=== PATIENT | female | born 1965 | race Caucasian/White ===

== ENCOUNTER 2016-11-22 14:54 | Emergency (ER) | payer BC ==
[2016-11-22 15:16] VITALS: BP 165/85
[2016-11-22] MEDS ORDERED: Ketorolac INJ* 60 MG/2 ML VIAL IM ONE (17:27)
--- NOTE | 2016-11-22 17:27 | UC ---
Complaint Female HPI - HPI Summary HPI Summary: seen 11/19 and dx with uti, now has worsening bilateral flank pain for 2 days no fever, chills, nausea, vomiting, no pain or burning with urination - History Of Current Complaint Chief Complaint: UCGeneralIllness Stated Complaint: BACK PAIN,FREQ URINATION Time Seen by Provider: 11/22/16 17:23 Hx Obtained From: Patient Hx Last Menstrual Period: now ?: No Onset/Duration: Gradual Onset, Lasting Days - 2, Still Present Timing: Constant Severity Initially: Moderate Severity Currently: Moderate Pain Intensity: 6 Character: Colicy Aggravating Factor(s): Nothing Alleviating Factor(s): Nothing Associated Signs And Symptoms: Positive: Back Pain. Negative: Fever, Vaginal Bleeding/Discharge, Vaginal Discharge, Nausea, Vomiting(# Of Episodes =), Retained Foregin Body (Specify) Related Hx: Similar Episode/Dx as: - renal colic - Allergies/Home Medications Allergies/Adverse Reactions: Allergies Allergy/AdvReac Type Severity Reaction Status Date / Time Codeine Allergy Intermediate See Comment Verified 11/22/16 15:16 Home Medications: Home Medications Diltiazem TAB* [Cardizem Tab*] 180 BID 11/22/16 [History] Sulfamethox/Trimethoprim DS* [Bactrim DS 800/160 TAB*] 1 11/22/16 [History] PMH/Surg Hx/FS Hx/Imm Hx Previously Healthy: No Endocrine History Of: Denies: Diabetes, Thyroid Disease, Hyperthyroidism, Hypothyroidism Cardiovascular History Of: Reports: Hypertension Denies: Cardiac Disorders, Pacemaker/ICD Respiratory History Of: Denies: COPD, Asthma GI/ History Of: Denies: Ulcer Neurological History Of: Denies: TIA, Seizures Psychological History Of: Denies: Anxiety, Depression Cancer History Of: Denies: Breast Cancer - Surgical History Surgical History: None - Family History Known Family History: Positive: None Family History: denies cardiovascular issues in family lineage - Social History Occupation: Employed Full-time Lives: With Family Alcohol Use: Daily Alcohol Amount: 6-8 beers/day Substance Use Type: None, Marijuana Smoking Status (MU): Heavy Every Day Tobacco Smoker Amount Used/How Often: 1 PPD Review of Systems Constitutional: Negative Skin: Negative Eyes: Negative ENT: Negative Respiratory: Negative Cardiovascular: Negative Gastrointestinal: Negative Genitourinary: Negative Motor: Negative Musculoskeletal: Arthralgia Neurological: Negative Psychological: Negative All Other Systems Reviewed And Are Negative: Yes Physical Exam Triage Information Reviewed: Yes Appearance: Well-Appearing, No Pain Distress, Well-Nourished Vital Signs: Initial Vital Signs Temp 97.7 F 11/22/16 15:11 Pulse 94 11/22/16 15:11 Resp 20 11/22/16 15:11 BP 165/85 11/22/16 15:11 Pulse Ox 94 11/22/16 15:11 Vital Signs Reviewed: Yes Eye Exam: Normal Eyes: Positive: Conjunctiva Clear ENT Exam: Normal ENT: Positive: Normal ENT inspection, Hearing grossly normal, Pharynx normal, TMs normal. Negative: Nasal congestion, Nasal drainage, Trismus, Muffled/ hoarse voice Dental Exam: Normal Neck exam: Normal Neck: Positive: Supple, Nontender, No Lymphadenopathy Respiratory Exam: Normal Respiratory: Positive: Chest non-tender, Lungs clear, Normal breath sounds, No respiratory distress, No accessory muscle use Cardiovascular Exam: Normal Cardiovascular: Positive: RRR, No Murmur, Pulses Normal, Brisk Capillary Refill Abdominal Exam: Normal Abdomen Description: Positive: Nontender, No Organomegaly, Soft, CVA Tenderness (R), CVA Tenderness (L) Bowel Sounds: Positive: Present Musculoskeletal Exam: Normal Musculoskeletal: Positive: Strength Intact, ROM Intact, No Edema Neurological Exam: Normal Neurological: Positive: Alert, Muscle Tone Normal Psychological Exam: Normal Psychological: Positive: Normal Response To Family Skin Exam: Normal Diagnostics - Laboratory Diagnostic Studies Completed/Ordered: 2mm non-obstruction right renal stone Complaint Female Dx - Course Course Of Treatment: increase fluids rest, pain control, strain urine follow with pcp - Differential Dx/Diagnosis Differential Diagnosis/HQI/PQRI: Renal Colic, Ureteral Stone, Urinary Tract Infection Provider Diagnoses: Renal Colic Discharge - Discharge Plan Condition: Stable Disposition: HOME Patient Education Materials: Acetaminophen (By mouth), Kidney Stones (ED), How to Strain Your Urine (ED) Forms: *Work Release Referrals: Meghna Sidhu NP [Primary Care Provider] - 3 Days
--- NOTE | 2016-11-22 18:01 | RAD ---
INDICATION: Bilateral flank pain COMPARISON: None TECHNIQUE: Noncontrast axial source images were acquired from the level hemidiaphragms to the symphysis pubis as part of CT imaging for renal stone. Lung bases: The lung bases are clear. Liver: The liver is normal in size. Noncontrast imaging shows no evidence of a hepatic mass or ductal dilatation. Gallbladder: There are no calcified gallstones. There is no evidence of wall thickening or pericholecystic fluid.. Spleen: The spleen is normal in size. The noncontrast CT appearance is normal. Pancreas: Noncontrast imaging shows no pancreatic mass or ductal dilitation. Adrenal glands: May be mild, bilateral, adrenal hyperplasia. Kidneys/Bladder: There is a nonobstructive 2 mm lower pole right renal calculus. There are no other calcifications of urinary significance. There is no obstruction. There is no renal mass identified on noncontrast imaging. Adenopathy: There is no evidence of intraperitoneal or retroperitoneal adenopathy. Evaluation is limited without oral contrast. Fluid collections: There are no free or localized fluid collections. Vessels: The aorta and iliac vessels are normal in caliber. There are no significant atherosclerotic changes. The IVC appears normal Pelvic organs: Uterus is mildly prominent. There is no adnexal mass. GI tract: Evaluation of the bowel is limited without oral contrast. The stomach, small bowel, and lower GI tract appear grossly normal. There are no obstructive findings. The appendix is visualized and appears normal. Soft tissues: There is a moderate-sized fat-containing ventral hernia. Osseous structures: There are no acute osseous findings. IMPRESSION: 1. Nonobstructive 2 mm right renal calculus. 2. Fat-containing ventral hernia 3. Normal appendix.
[2016-11-22] MEDS ORDERED: HYDROcodone/ACETAMIN 5-325 MG* 1 TAB PO ONE (18:19)
== END 2016-11-22 18:28 | disposition home or self-care (01) ==
LOC: UCEAST 14:54
DX: N23 Unspecified renal colic (principal); F17.210 Nicotine dependence, cigarettes, uncomplicated; Z88.5 Allergy status to narcotic agent
CPT/HCPCS: 74176; 81002; 96372; 99211; G0463; J1885

== ENCOUNTER → 2017-02-07 13:08 | Emergency (ER) | payer BC ==
[2017-02-07 14:48] LABS: Add Diff/Slide Review? Slide Review Added; Comments Flag Yes; Hematocrit 43 % (35-47); Hemoglobin 14.8 g/dl (12.0-16.0); Mean Corpuscular HGB Conc 34 g/dl (31-36); Mean Corpuscular Hemoglobin 31 pg (27-31); Mean Corpuscular Volume 91 fL (80-97); Mean Platelet Volume 7 um3 (7.4-10.4); Red Blood Count 4.76 10^6/ul (4.0-5.4); Red Cell Distribution Width 15 % (10.5-15); White Blood Count 10.3 10^3/ul (3.5-10.8)
[2017-02-07 15:03] LABS: Albumin 4.2 g/dL (3.2-5.2); BUN/Creatinine Ratio 14.3 (8-20); Calcium 9.1 mg/dL (8.6-10.3); EGFR African American 147.4 (>60); EGFR Non-African American 114.6 (>60); Magnesium 1.7 mg/dL (1.9-2.7); Potassium 3.8 mmol/L (3.5-5.0); Total Bilirubin 0.4 mg/dL (0.2-1.0); Total Protein 7.2 g/dL (6.4-8.9)
[2017-02-07 15:31] LABS: TSH (Thyroid Stimulating Horm) 0.48 mcIU/mL (0.34-5.60)
[2017-02-07 17:12] VITALS: BP 160/79
--- NOTE | 2017-02-07 20:37 | ED ---
Cruz Thompson Michael, scribed for Castro Rey MD on 02/07/17 at 1415 . Palpitations / Dysrhythmia - HPI Summary HPI Summary: 51 y/o female comes to the ED presenting with intermittent episodes of palpitations that started 3 days ago. The pt describes the palpitations as rapid , and she has a home machine detecting an irregular heart beat. She also c/o recent stress and anxiety increase for the past few days, which she states may aggravate the palpitations. The pt takes 360mg of Cardizem for HTN per day. - History of Current Complaint Chief Complaint: EDDysrhythmPalp Time Seen by Provider: 02/07/17 14:04 Hx Obtained From: Patient, Medical Records Onset/Duration: Sudden Onset Timing: Intermittent Episodes Lasting: Severity Initially: Moderate Severity Currently: Moderate Character: Fast, Irregular Aggravating: Rest - increased stress/anxiety Associated Signs & Symptoms: Negative - Positive: anxiety. palpitatoins - Allergy/Home Medications Allergies/Adverse Reactions: Allergies Allergy/AdvReac Type Severity Reaction Status Date / Time Codeine Allergy Intermediate See Comment Verified 02/07/17 13:12 PMH/Surg Hx/FS Hx/Imm Hx Endocrine/Hematology History: Denies: Hx Diabetes, Hx Thyroid Disease Cardiovascular History: Reports: Hx Hypertension Denies: Hx Hypercholesterolemia, Hx Pacemaker/ICD, Hx Peripheral Vascular Disease Respiratory History: Denies: Hx Asthma, Hx Chronic Obstructive Pulmonary Disease (COPD) GI History: Denies: Hx Ulcer Musculoskeletal History: Denies: Hx Arthritis, Hx Osteoporosis Sensory History: Denies: Hx Cataracts, Hx Contacts or Glasses, Hx Glaucoma, Hx Hearing Aid Opthamlomology History: Denies: Hx Cataracts, Hx Contacts or Glasses, Hx Glaucoma Neurological History: Denies: Hx Headaches, Hx Seizures, Hx Transient Ischemic Attacks (TIA) Psychiatric History: Denies: Hx Anxiety, Hx Depression, Hx Panic Disorder - Cancer History Hx Chemotherapy: No Hx Radiation Therapy: No Infectious Disease History: No Infectious Disease History: Denies: Hx Hepatitis, Hx Human Immunodeficiency Virus (HIV), Traveled Outside the [place] in Last 30 Days - Family History Known Family History: Positive: None Negative: Cardiac Disease, Hypertension Family History: denies cardiovascular issues in family lineage - Social History Occupation: Employed Full-time Lives: With Family Alcohol Use: Daily Alcohol Amount: 6-8 beers/day Hx Substance Use: No Substance Use Type: Reports: Marijuana Hx Tobacco Use: Yes Smoking Status (MU): Heavy Every Day Tobacco Smoker Amount Used/How Often: 1 PPD Review of Systems Negative: Fever Positive: Palpitations Positive: Anxious All Other Systems Reviewed And Are Negative: Yes Physical Exam Triage Information Reviewed: Yes Vital Signs On Initial Exam: Initial Vitals Temp Pulse Resp BP Pulse Ox 98.1 F 107 20 195/77 100 02/07/17 13:14 02/07/17 13:14 02/07/17 13:14 02/07/17 13:14 02/07/17 13:14 Vital Signs Reviewed: Yes Appearance: Positive: Well-Appearing, No Pain Distress, Obese Skin: Positive: Warm, Skin Color Reflects Adequate Perfusion, Dry Head/Face: Positive: Normal Head/Face Inspection Eyes: Positive: Normal ENT: Positive: Normal ENT inspection Neck: Positive: Supple, Nontender Respiratory/Lung Sounds: Positive: Clear to Auscultation, Breath Sounds Present Cardiovascular: Positive: Tachycardia Abdomen Description: Positive: Nontender, Soft Bowel Sounds: Positive: Present Musculoskeletal: Positive: Normal Neurological: Positive: Normal Psychiatric: Positive: Anxious Diagnostics - Vital Signs Vital Signs Temp Pulse Resp BP Pulse Ox 02/07/17 14:00 94 16 99 02/07/17 13:58 81 14 169/89 98 02/07/17 13:28 90 14 98 02/07/17 13:14 98.1 F 107 20 195/77 100 - Laboratory Lab Results: Lab Results 02/07/17 02/07/17 02/07/17 Range/Units 14:40 14:40 14:40 WBC 10.3 (3.5-10.8) 10^3/ul RBC 4.76 (4.0-5.4) 10^6/ul Hgb 14.8 (12.0-16.0) g/dl Hct 43 (35-47) % MCV 91 (80-97) fL MCH 31 (27-31) pg MCHC 34 (31-36) g/dl RDW 15 (10.5-15) % Plt Count 259 (150-450) 10^3/ul MPV 7 L (7.4-10.4) um3 Neut % (Auto) 77.4 (38-83) % Lymph % (Auto) 15.2 L (25-47) % Meagher % (Auto) 4.7 (1-9) % Eos % (Auto) 1.6 (0-6) % Baso % (Auto) 1.1 (0-2) % Absolute Neuts (auto) 8.0 H (1.5-7.7) 10^3/ul Absolute Lymphs (auto) 1.6 (1.0-4.8) 10^3/ul Absolute Monos (auto) 0.5 (0-0.8) 10^3/ul Absolute Eos (auto) 0.2 (0-0.6) 10^3/ul Absolute Basos (auto) 0.1 (0-0.2) 10^3/ul Absolute Nucleated RBC 0 10^3/ul Nucleated RBC % 0 Sodium 134 (133-145) mmol/L Potassium 3.8 (3.5-5.0) mmol/L Chloride 103 (101-111) mmol/L Carbon Dioxide 23 (22-32) mmol/L Anion Gap 8 (2-11) mmol/L BUN 8 (6-24) mg/dL Creatinine 0.56 (0.51-0.95) mg/dL Est GFR ( Amer) 147.4 (>60) Est GFR (Non-Af Amer) 114.6 (>60) BUN/Creatinine Ratio 14.3 (8-20) Glucose 109 H (70-100) mg/dL Lactic Acid 0.8 (0.5-2.0) mmol/L Calcium 9.1 (8.6-10.3) mg/dL Magnesium 1.7 L (1.9-2.7) mg/dL Total Bilirubin 0.40 (0.2-1.0) mg/dL AST 15 (13-39) U/L ALT 14 (7-52) U/L Alkaline Phosphatase 64 (34-104) U/L Troponin I 0.00 (<0.04) ng/mL Total Protein 7.2 (6.4-8.9) g/dL Albumin 4.2 (3.2-5.2) g/dL Globulin 3.0 (2-4) g/dL Albumin/Globulin Ratio 1.4 (1-3) TSH 0.48 (0.34-5.60) mcIU/mL Result Diagrams: 02/07/17 14:40 02/07/17 14:40 Lab Statement: Any lab studies that have been ordered have been reviewed, and results considered in the medical decision making process. - EKG EK EKG Rhythm: Sinus Rhythm - 94 EKG Interpretation: borderline tachycardia Course/Dx - Course Course Of Treatment: Ms. Garsia presented with a concern for an irregular, racing heartbeat on and off for a few days. She had had a similar episode in the remote past when she was under a lot of stress and wore a Holter. She was diagnosed with anxiety and given a script for lorazepam. Tonight she was again W/U'd with labs including troponin and d-dimer which were negative and CXR/ecg. She is requesting ativan as she took a couple of the ones left over from her previous W/U and they helped. I think that's a good idea. - Diagnoses Provider Diagnoses: Palpitations, Anxiety Discharge - Discharge Plan Condition: Stable Disposition: HOME Prescriptions: LORazepam TAB(*) [Ativan TAB(*)] 1 mg PO Q6H PRN #20 tab MDD 4 PRN Reason: Pain Patient Education Materials: Palpitations (ED), Anxiety (ED) Referrals: Meghna Sidhu NP [Primary Care Provider] - Additional Instructions: Please follow up with Meghna Sidhu within the next 3-5 days. The documentation as recorded by the Cruz gibbons Michael accurately reflects the service I personally performed and the decisions made by me, Castro Rey MD.
== END | disposition home or self-care (01) ==
LOC: ED 13:08
DX: R00.2 Palpitations (principal); F41.9 Anxiety disorder, unspecified; F17.210 Nicotine dependence, cigarettes, uncomplicated; I10 Essential (primary) hypertension; Z88.5 Allergy status to narcotic agent
CPT/HCPCS: 36415; 80053; 83605; 83735; 84443; 84484; 85025; 93005; 99283

== ENCOUNTER 2017-08-08 14:50 | Emergency (ER) | payer BC ==
--- NOTE | 2017-08-08 15:16 | ED ---
Lower Extremity - HPI Summary HPI Summary: Patient is a 51yo smoker with a history of HTN and anxiety presenting to the ED with CC of left calf and behind the knee pain since yesterday. Denies swelling , erythema. Notes to temperature changes in the R leg which has been intermittent. Hip discomfort with a pinched feeling which radiates down the leg causing the leg to becomes cold. Denies numbness or tingling in the R leg. She notes to some SOB at baseline. She is anxious on arrival, and thinks it may be a blood clot, continuing to express "something's not right." Denies fevers, sweats or chills. Endorses R lower back pain, but full ROM noted. Denies GUZMAN, visual changes. Endorses a fluttery feeling in her heart. She was seen in the ED last week for right sided abdominal pain with lab work obtained. - History of Current Complaint Chief Complaint: EDExtremityLower Stated Complaint: LEFT LEG NUMBNESS Time Seen by Provider: 08/08/17 15:01 Hx Obtained From: Patient Hx Last Menstrual Period: now Onset of Pain: Immediate Onset/Duration: Hours Severity Initially: Mild Severity Currently: Mild Pain Intensity: 0 Pain Scale Used: 0-10 Numeric Timing: Constant Location: Is Discrete @ - left calf Character Of Pain: Aching Aggravating Factor(s): Standing, Ambulation Alleviating Factor(s): Rest Able to Bear Weight: Yes - Risk Factors DVT Risk Factors: Smoking Septic Arthritis Risk Factor: Negative - Allergies/Home Medications Allergies/Adverse Reactions: Allergies Allergy/AdvReac Type Severity Reaction Status Date / Time Codeine Allergy Intermediate See Comment Verified 08/08/17 14:59 PMH/Surg Hx/FS Hx/Imm Hx Previously Healthy: Yes Endocrine/Hematology History: Denies: Hx Diabetes, Hx Thyroid Disease Cardiovascular History: Reports: Hx Hypertension Denies: Hx Hypercholesterolemia, Hx Pacemaker/ICD, Hx Peripheral Vascular Disease Respiratory History: Denies: Hx Asthma, Hx Chronic Obstructive Pulmonary Disease (COPD) GI History: Denies: Hx Ulcer Musculoskeletal History: Denies: Hx Arthritis, Hx Osteoporosis Sensory History: Denies: Hx Cataracts, Hx Contacts or Glasses, Hx Glaucoma, Hx Hearing Aid Opthamlomology History: Denies: Hx Cataracts, Hx Contacts or Glasses, Hx Glaucoma Neurological History: Denies: Hx Headaches, Hx Seizures, Hx Transient Ischemic Attacks (TIA) Psychiatric History: Denies: Hx Anxiety, Hx Depression, Hx Panic Disorder - Cancer History Hx Chemotherapy: No Hx Radiation Therapy: No - Immunization History Hx Pertussis Vaccination: No Immunizations Up to Date: Unable to Obtain/Confirm Infectious Disease History: No Infectious Disease History: Denies: Hx Clostridium Difficile, Hx Hepatitis, Hx Human Immunodeficiency Virus (HIV), Hx of Known/Suspected MRSA, Hx Shingles, Hx Tuberculosis, Hx Known/ Suspected VRE, Hx Known/Suspected VRSA, History Other Infectious Disease, Traveled Outside the [place] in Last 30 Days - Family History Known Family History: Positive: None Negative: Cardiac Disease, Hypertension Family History: denies cardiovascular issues in family lineage - Social History Occupation: Employed Full-time Lives: With Family Alcohol Use: Daily Alcohol Amount: 6-8 beers/day Hx Substance Use: No Substance Use Type: Reports: Marijuana Hx Tobacco Use: Yes Smoking Status (MU): Heavy Every Day Tobacco Smoker Amount Used/How Often: 1 PPD Review of Systems Constitutional: Negative Negative: Fever, Chills, Fatigue Eyes: Negative Positive: Palpitations Respiratory: Negative Genitourinary: Negative Positive: no symptoms reported, see HPI Positive: Myalgia - left calf tenderness Skin: Negative Neurological: Negative Psychological: Normal All Other Systems Reviewed And Are Negative: Yes Physical Exam Triage Information Reviewed: Yes Vital Signs On Initial Exam: Initial Vitals Temp Pulse Resp BP Pulse Ox 98.3 F 98 16 157/97 98 08/08/17 14:55 08/08/17 14:55 08/08/17 14:55 08/08/17 14:55 08/08/17 14:55 Vital Signs Reviewed: Yes Appearance: Positive: Well-Appearing, Well-Nourished Skin: Positive: Warm, Skin Color Reflects Adequate Perfusion Head/Face: Positive: Normal Head/Face Inspection Eyes: Positive: EOMI, Conjunctiva Clear Neck: Positive: Supple Respiratory/Lung Sounds: Positive: Wheezes Cardiovascular: Positive: Pulses are Symmetrical in both Upper and Lower Extremities Musculoskeletal: Positive: Normal, Strength/ROM Intact, Pain @ - left calf pain Neurological: Positive: Speech Normal Psychiatric: Positive: Normal AVPU Assessment: Alert Diagnostics - Vital Signs Vital Signs Temp Pulse Resp BP Pulse Ox 08/08/17 14:55 98.3 F 98 16 157/97 98 - Laboratory Lab Statement: Any lab studies that have been ordered have been reviewed, and results considered in the medical decision making process. Lower Extremity Course/Dx - Course Course Of Treatment: Patient presents to the ED with calf pain in the L leg, and right leg intermittent feeling of coldness with back pain. Fluttery feeling in the chest. Hx of HTN and anxiety. Very anxious on arrival. Recently seen here last week with full workup with normal exam. D-dimer <200. Daughter would like an US of the left leg. US for DVT performed and awaiting results. Rosendo continues to say she would like an MRI to make sure she does not have a blood clot, despite the negative d-dimer. She has not felt tachy, but states she has palpitations intermittently. ON exam there is no tenderness over the bilateral flanks. She notes to pain which now "moves" when she lifts her arms. She would like a referral for an MRI. It was explained to patient she will not require an MRI to r/o blood clot and that this is likely muscular. I have discussed following up with PCP for any other referrals she may need. This is likely not a ortho case, although I do beleive this is muscular. Denies N/V/C/D. Denies epigastric pain. Smoker and states she has been getting over a "cold." I have signed out to Naomi Arroyo PA-C pending the results of the US. She has a WELLS SCORE of 3.0. (moderate risk) - Diagnoses Differential Diagnosis/HQI/PQRI: Positive: DVT, Sprain, Strain Provider Diagnoses: Strain of calf muscle Discharge - Discharge Plan Condition: Stable Disposition: HOME Patient Education Materials: Muscle Strain (ED), Leg Pain (ED) Referrals: Femi Moreno MD [Medical Doctor] - Meghna Cowart NP [Primary Care Provider] - Additional Instructions: PLEASE FOLLOW UP WITH JUDD COWART NP DISCUSSED, WE HAVE RULED OUT THE LIKELINESS OF A BLOOD CLOT BASED ON ULTRASOUND AND THE BLOOD TEST EKG LOOKS OK CHEST XRAY LOOKS OK HOWEVER, IF YOU DEVELOP WORSENING SYMPTOMS, YOU NEED TO RETURN TO THE ED IMMEDIATELY IBUPROFEN 600MG THREE TIMES DAILY AND MOIST HEAT TO THE AREA FOR RELAXATION OF THE MUSCLES IF YOU DEVELOP SHORTNESS OF BREATH - RETURN TO THE ED. I HAVE GIVEN YOU A REFERRAL TO CARDIOLOGY IF YOU DEVELOP PALPITATION, HEART RACING, ETC.
--- NOTE | 2017-08-08 15:39 | RAD ---
INDICATION: Wheezing COMPARISON: July 30, 2017 TECHNIQUE: PA and lateral dual-energy views were obtained. FINDINGS: Bones/Soft Tissues: There are no acute bony findings. There is osteopenia with kyphosis Cardiomediastinal: The cardiomediastinal silhouette is normal. Lungs: There are no infiltrates. Pleura: There are no pleural effusions. Other: None IMPRESSION: NO ACTIVE DISEASE.
--- NOTE | 2017-08-08 16:27 | RAD ---
INDICATION: Pain and swelling. Normal d-dimer COMPARISON: None TECHNIQUE: Duplex interrogation of the Lowerextremity was performed. FINDINGS: Deep veins: The common femoral, great saphenous, profunda femoris, proximal, mid, and distal deep femoral, popliteal, posterior tibial, and peroneal veins are patent. There is normal compressibility, augmentation, and phasic flow. Superficial veins: There are no findings of superficial thrombophlebitis. Popliteal fossa:There is no evidence of a popliteal cyst. Soft tissues:There are no soft tissue abnormalities. IMPRESSION: Normal examination. No evidence of deep venous thrombosis
[2017-08-08 16:50] VITALS: BP 157/83
== END 2017-08-08 16:51 | disposition home or self-care (01) ==
LOC: ED 14:50
DX: S86.912A Strain of unspecified muscle(s) and tendon(s) at lower leg level, left leg, initial encounter (principal); X58.XXXA Exposure to other specified factors, initial encounter; Y93.9 Activity, unspecified; Y92.9 Unspecified place or not applicable; Z86.79 Personal history of other diseases of the circulatory system; Y99.9 Unspecified external cause status
CPT/HCPCS: 36415; 71020; 85379; 96372; 96374; 99283

== ENCOUNTER 2017-10-04 13:57 | Emergency (ER) | payer BC ==
[2017-10-04 17:23] LABS: ABS Basophils 0.1 10^3/ul (0-0.2); ABS Eosinophils 0.1 10^3/ul (0-0.6); ABS Lymphocytes 2.1 10^3/ul (1.0-4.8); ABS Monocytes 0.6 10^3/ul (0-0.8); ABS Neutrophils 7.6 10^3/ul (1.5-7.7); ABS Nucleated RBC 0 10^3/ul; Eosinophil % 0.6 % (0-6); Hematocrit 43 % (35-47); Hemoglobin 14.4 g/dl (12.0-16.0); Lymphocyte % 19.8 % (25-47); Mean Corpuscular HGB Conc 34 g/dl (31-36); Mean Corpuscular Hemoglobin 31 pg (27-31); Mean Corpuscular Volume 92 fL (80-97); Mean Platelet Volume 7 um3 (7.4-10.4); Nucleated Red Blood Cells % 0; Platelet Count 370 10^3/ul (150-450); Red Blood Count 4.62 10^6/ul (4.0-5.4); Red Cell Distribution Width 15 % (10.5-15); White Blood Count 10.4 10^3/ul (3.5-10.8)
[2017-10-04 17:35] LABS: EGFR Non-African American 103.4 (>60)
[2017-10-04 17:40] LABS: INR 0.89 (0.77-1.02)
[2017-10-04 19:25] LABS: Urine Appearance Cloudy; Urine Blood 2+ (Negative); Urine Color Yellow; Urine Ketones Trace (Negative); Urine Protein 1+(30 mg/dL) (Negative); Urine Specific Gravity 1.017 (1.010-1.030); Urine Urobilinogen Negative (Negative)
[2017-10-04] MEDS ORDERED: Lidocaine 4% GEL* 10 GM TUBE TOPICAL ONE (19:30)
[2017-10-04 20:08] VITALS: BP 133/75
--- NOTE | 2017-10-04 20:17 | ED ---
Edgar Thompson Gabriel, scribed for Paras Dickens MD on 10/04/17 at 1836 . Abdominal Pain/Female - HPI Summary HPI Summary: This patient is a 52 year old F presenting to [facility] with a chief complaint of blood in her stool that began yesterday. The patient rates the pain 8/10 in severity and describes it as radiating into her back. Patient reports burning in LE, chills, and cold and hot feeling in her LE. Patient denies melena, vomiting, fever, dysuria, and hematuria. Yesterday she had a gross amount of blood when wiping and has bleeding hemorrhoids. She has a history of bleed external hemorrhoids. In July she had ABD pain in suprapubic region that resolved and she has colposcopy in a month. - History of Current Complaint Chief Complaint: EDGIBleed Stated Complaint: BACK PAIN/ABD PAIN Time Seen by Provider: 10/04/17 18:18 Hx Obtained From: Patient Hx Last Menstrual Period: now Onset/Duration: Lasting Days - 1, Still Present Timing: Constant Severity Initially: Moderate Severity Currently: Moderate Pain Intensity: 8 Pain Scale Used: 0-10 Numeric Location: Diffuse Radiates: Yes Radiates to: Back Associated Signs and Symptoms: Positive: Negative - melena, vomiting, fever, dysuria, and hematuria, Other: - burning in LE, chills, and cold and hot feeling in her LE" Allergies/Adverse Reactions: Allergies Allergy/AdvReac Type Severity Reaction Status Date / Time Codeine Allergy Intermediate See Comment Verified 10/04/17 18:55 PMH/Surg Hx/FS Hx/Imm Hx Endocrine/Hematology History: Denies: Hx Diabetes, Hx Thyroid Disease Cardiovascular History: Reports: Hx Hypertension Denies: Hx Hypercholesterolemia, Hx Pacemaker/ICD, Hx Peripheral Vascular Disease Comment Only: Other Cardiovascular Problems/Disorders - tachycardia Respiratory History: Denies: Hx Asthma, Hx Chronic Obstructive Pulmonary Disease (COPD) GI History: Denies: Hx Ulcer Musculoskeletal History: Denies: Hx Arthritis, Hx Osteoporosis Sensory History: Denies: Hx Cataracts, Hx Contacts or Glasses, Hx Glaucoma, Hx Hearing Aid Opthamlomology History: Denies: Hx Cataracts, Hx Contacts or Glasses, Hx Glaucoma Neurological History: Denies: Hx Headaches, Hx Seizures, Hx Transient Ischemic Attacks (TIA) Psychiatric History: Denies: Hx Anxiety, Hx Depression, Hx Panic Disorder - Cancer History Hx Chemotherapy: No Hx Radiation Therapy: No Infectious Disease History: No Infectious Disease History: Denies: Hx Clostridium Difficile, Hx Hepatitis, Hx Human Immunodeficiency Virus (HIV), Hx of Known/Suspected MRSA, Hx Shingles, Hx Tuberculosis, Hx Known/ Suspected VRE, Hx Known/Suspected VRSA, History Other Infectious Disease, Traveled Outside the [place] in Last 30 Days - Family History Known Family History: Positive: None Negative: Cardiac Disease, Hypertension Family History: denies cardiovascular issues in family lineage - Social History Alcohol Use: Daily Alcohol Amount: 8 beers/day Hx Substance Use: No Substance Use Type: Reports: Marijuana Substance Use Comment - Amount & Last Used: nightly for sleep Hx Tobacco Use: Yes Smoking Status (MU): Heavy Every Day Tobacco Smoker Amount Used/How Often: 1-1.5 PPD Review of Systems Positive: Chills. Negative: Fever Gastrointestinal: Negative - melena Positive: Abdominal Pain - in to back . Negative: Vomiting Negative: dysuria, hematuria Positive: Other - burning in LE All Other Systems Reviewed And Are Negative: Yes Physical Exam - Summary Physical Exam Summary: Appearance: Well-appearing, Well-nourished Skin: Warm Eyes: Normal, EOMI, PERRL ENT: moist mucous membranes Neck: Supple, nontender Respiratory: Clear to auscultation Cardiovascular: Normal Abdomen: Soft, nontender, nondistended. No masses. No rebound or guarding. Rectal exam: multiple external hemorrhoids with areas of possible thrombosis, tender to palpation. No evidence of fistulous tracts, small areas of cracked bleeding skin. No rectal bleed. Guaiac negative Musculoskeletal: Normal, Strength/ROM Intact Neurological: Normal, A&Ox3, cranial nerves 2-12 intact Psychiatric: Normal Vital Signs On Initial Exam: Initial Vitals Temp Pulse Resp BP Pulse Ox 98.5 F 99 17 159/83 97 10/04/17 13:59 10/04/17 13:59 10/04/17 13:59 10/04/17 13:59 10/04/17 13:59 Diagnostics - Vital Signs Vital Signs Temp Pulse Resp BP Pulse Ox 10/04/17 17:17 98.4 F 88 16 142/86 99 10/04/17 16:00 97.8 F 93 18 136/80 100 10/04/17 13:59 98.5 F 99 17 159/83 97 - Laboratory Lab Results: Lab Results 10/04/17 10/04/17 10/04/17 Range/Units 16:49 16:49 16:49 WBC 10.4 (3.5-10.8) 10^3/ul RBC 4.62 (4.0-5.4) 10^6/ul Hgb 14.4 (12.0-16.0) g/dl Hct 43 (35-47) % MCV 92 (80-97) fL MCH 31 (27-31) pg MCHC 34 (31-36) g/dl RDW 15 (10.5-15) % Plt Count 370 (150-450) 10^3/ul MPV 7 L (7.4-10.4) um3 Neut % (Auto) 73.4 (38-83) % Lymph % (Auto) 19.8 L (25-47) % Swift % (Auto) 5.5 (1-9) % Eos % (Auto) 0.6 (0-6) % Baso % (Auto) 0.7 (0-2) % Absolute Neuts (auto) 7.6 (1.5-7.7) 10^3/ul Absolute Lymphs (auto) 2.1 (1.0-4.8) 10^3/ul Absolute Monos (auto) 0.6 (0-0.8) 10^3/ul Absolute Eos (auto) 0.1 (0-0.6) 10^3/ul Absolute Basos (auto) 0.1 (0-0.2) 10^3/ul Absolute Nucleated RBC 0 10^3/ul Nucleated RBC % 0 INR (Anticoag Therapy) 0.89 (0.77-1.02) APTT 27.9 (26.0-36.3) seconds Sodium 136 (133-145) mmol/L Potassium 3.9 (3.5-5.0) mmol/L Chloride 101 (101-111) mmol/L Carbon Dioxide 29 (22-32) mmol/L Anion Gap 6 (2-11) mmol/L BUN 7 (6-24) mg/dL Creatinine 0.61 (0.51-0.95) mg/dL Est GFR ( Amer) 133.0 (>60) Est GFR (Non-Af Amer) 103.4 (>60) BUN/Creatinine Ratio 11.5 (8-20) Glucose 114 H (70-100) mg/dL Lactic Acid (0.5-2.0) mmol/L Calcium 9.1 (8.6-10.3) mg/dL Total Bilirubin 0.40 (0.2-1.0) mg/dL AST 15 (13-39) U/L ALT 16 (7-52) U/L Alkaline Phosphatase 60 (34-104) U/L C-React Prot High Sens 1.63 mg/L Total Protein 7.3 (6.4-8.9) g/dL Albumin 4.2 (3.2-5.2) g/dL Globulin 3.1 (2-4) g/dL Albumin/Globulin Ratio 1.4 (1-3) Lipase 26 (11.0-82.0) U/L 10/04/17 Range/Units 16:49 WBC (3.5-10.8) 10^3/ul RBC (4.0-5.4) 10^6/ul Hgb (12.0-16.0) g/dl Hct (35-47) % MCV (80-97) fL MCH (27-31) pg MCHC (31-36) g/dl RDW (10.5-15) % Plt Count (150-450) 10^3/ul MPV (7.4-10.4) um3 Neut % (Auto) (38-83) % Lymph % (Auto) (25-47) % Swift % (Auto) (1-9) % Eos % (Auto) (0-6) % Baso % (Auto) (0-2) % Absolute Neuts (auto) (1.5-7.7) 10^3/ul Absolute Lymphs (auto) (1.0-4.8) 10^3/ul Absolute Monos (auto) (0-0.8) 10^3/ul Absolute Eos (auto) (0-0.6) 10^3/ul Absolute Basos (auto) (0-0.2) 10^3/ul Absolute Nucleated RBC 10^3/ul Nucleated RBC % INR (Anticoag Therapy) (0.77-1.02) APTT (26.0-36.3) seconds Sodium (133-145) mmol/L Potassium (3.5-5.0) mmol/L Chloride (101-111) mmol/L Carbon Dioxide (22-32) mmol/L Anion Gap (2-11) mmol/L BUN (6-24) mg/dL Creatinine (0.51-0.95) mg/dL Est GFR ( Amer) (>60) Est GFR (Non-Af Amer) (>60) BUN/Creatinine Ratio (8-20) Glucose (70-100) mg/dL Lactic Acid 1.2 (0.5-2.0) mmol/L Calcium (8.6-10.3) mg/dL Total Bilirubin (0.2-1.0) mg/dL AST (13-39) U/L ALT (7-52) U/L Alkaline Phosphatase (34-104) U/L C-React Prot High Sens mg/L Total Protein (6.4-8.9) g/dL Albumin (3.2-5.2) g/dL Globulin (2-4) g/dL Albumin/Globulin Ratio (1-3) Lipase (11.0-82.0) U/L Result Diagrams: 10/04/17 16:49 10/04/17 16:49 Lab Statement: Any lab studies that have been ordered have been reviewed, and results considered in the medical decision making process. Abdominal Pain Fem Course/Dx - Course Course Of Treatment: labs WNL, low suspicion for any serious intraabdominal pathology. Pt feels better, given topical lidocaine for temporary relief of hemorroidal pain, also instructed to fu with surgeon for further elective treatment. agrees to and understands dc instructions. Tolerating PO normally. - Diagnoses Provider Diagnoses: External bleeding hemorrhoids Discharge - Discharge Plan Condition: Improved Disposition: HOME Patient Education Materials: Hemorrhoids (ED), Thrombosed Hemorrhoid (ED) Referrals: eMghna Sidhu NP [Primary Care Provider] - Juan J Pa MD [Medical Doctor] - Aron Godoy MD [Medical Doctor] - Additional Instructions: PLEASE MAKE AN APPOINTMENT FIRST THING IN THE MORNING TO BE SEEN BY A GENERAL SURGEON PLEASE USE TOPICAL LIDOCAINE SPARINGLY AND ONLY NEEDED PLEASE RETURN IMMEDIATELY TO THE ER IF YOU HAVE ANY WORSENING OR CONCERNING SYMPTOMS PLEASE MAKE AN APPOINTMENT TO BE SEEN BY YOUR PRIMARY CARE DOCTOR WITHIN 1 WEEK The documentation as recorded by the scribe, Hernández,Kong accurately reflects the service I personally performed and the decisions made by me, Paras Dickens MD.
== END 2017-10-04 20:21 | disposition home or self-care (01) ==
LOC: ED 13:57
DX: K64.4 Residual hemorrhoidal skin tags (principal); M54.9 Dorsalgia, unspecified; R10.9 Unspecified abdominal pain; F17.210 Nicotine dependence, cigarettes, uncomplicated
CPT/HCPCS: 36415; 80053; 81003; 81015; 82272; 83605; 83690; 85025; 85610; 85730; 86141; 99283

== ENCOUNTER 2017-10-20 15:30 | Day surgery (SDC) | payer BC ==
[~2017-10-20 15:30] MED LIST: Buffered Lidocaine 0.9% SYRIN* 5 ML/SYR SYRINGE INTRADERM ONE; Buffered Lidocaine 0.9% SYRIN* 5 ML/SYR SYRINGE ONE; ceFAZolin 2 GM PREMIX (*) 2 GM/50 ML BAG IVPB ONE
[2017-10-20] MEDS ORDERED: Methylene Blue 0.5 %* 50 MG/10 ML AMP IV ONE (18:43)
[2017-10-20] MEDS ORDERED: Bupivacaine 0.25% SDV* 30 ML ONE (18:44)
[2017-10-20] MEDS ORDERED: Gelfoam 12-7 ADSORBABL SPONGE* 1 EA SPONGE ONE (18:44)
[2017-10-20] MEDS ORDERED: Surgical Lubricant STERILE* 120 GM TOP.GEL ONE (19:19)
[2017-10-20] MEDS ORDERED: Midazolam* 1 MG/ML 2 ML VIAL (2 MG) ONE ×2 (19:20→19:27)
[2017-10-20] MEDS ORDERED: fentaNYL* 50 MCG/ML 2 ML VIAL (100 MCG VIAL) ONE (19:20)
[2017-10-20] MEDS ORDERED: Propofol* 10 MG/ML 20 ML BTL IV PUSH ONE (19:27)
[2017-10-20] MEDS ORDERED: Ondansetron INJ* 2 MG/ML VIAL IV PRN (19:36)
[2017-10-20] MEDS ORDERED: Naloxone* 0.4 MG/ML 1 ML VIAL IV PRN (19:36)
--- NOTE | 2017-10-20 20:21 | BRIEFOPN ---
Brief Operative Note - Surgery Procedures: Procedures Pre-OP Diagnoses: prolapsed hemorrhoids Post-op Diagnosis: same Procedure: exam under anesthesia, hemorrhoidectomy, hemorrhoidal banding Surgeon: Tawnya Asst: none Anethesia: local Fab SORENSEN EBL: 30cc IVF: minimal Specimen: hemorrhoid Drains: none Complications: None
[2017-10-20 20:49] VITALS: BP 157/96
--- NOTE | 2017-11-11 16:25 | OP ---
CC: Dr. Kadi Martino * DATE OF OPERATION: 10/20/17 - [facility] DATE OF : 67 Please note, this is a late entry. SURGEON: Tad Bowling MD BEATER OUT: None. ANESTHESIOLOGIST: Dr. Sanon. ANESTHESIA: Local MAC anesthesia. PRE-OP DIAGNOSIS: Prolapsed hemorrhoids. POST-OP DIAGNOSIS: Prolapsed hemorrhoids. OPERATIVE PROCEDURE: Exam under anesthesia and hemorrhoidectomy x1 and hemorrhoidal banding x1. ESTIMATED BLOOD LOSS: Minimal blood loss of approximately 30 cc. IV FLUIDS: Minimal IV fluids given. SPECIMENS: Hemorrhoids. DRAINS: None. DESCRIPTION OF PROCEDURE: The patient was identified in the preoperative area. Consent was signed. She was taken to the operating room. General sedation was given. The patient was placed on her abdomen and buttocks were taped apart and the perineum was prepped with Betadine. The patient was prepped and draped in standard surgical fashion. A time-out was performed. Review of the perianal area revealed a large prolapsed hemorrhoid inferiorly on the left. This was grasped and retracted down at the anus. Anal retractors were placed and we dilated the anus until we could see the superior most portion of the hemorrhoid. At this point, a 2-0 Vicryl suture was placed at this site. Next, we incised the perianal skin through an external skin tag and extended this along the mucosa of the hemorrhoid with cautery. Next, dissection of the hemorrhoid off of the internal sphincter muscles were then performed using Metzenbaum scissors and we took the hemorrhoid with small LigaSure device until was completely removed and passed off as specimen. Hemostasis was excellent, but we reapproximated the perianal skin with the 2-0 Vicryl sutures that had placed initially. I then placed the anoscope in and looking for any additional significant hemorrhoids. There was one small internal hemorrhoid that did not reach prolapse. I decided to place a hemorrhoidal band at this site. This was performed and no anal fissures were noted, no abscesses were identified. I then placed a portion of Gelfoam into the perianal canal. The patient was woken up and transferred to the PACU in stable condition. [id number]/[facility] #: [id number] [facility]
== END 2017-10-20 21:20 | disposition home or self-care (01) ==
LOC: OR 15:30
PROVIDERS: ATTEND Surgery
DX: K64.2 Third degree hemorrhoids (principal); I10 Essential (primary) hypertension; F17.210 Nicotine dependence, cigarettes, uncomplicated; F41.9 Anxiety disorder, unspecified
CPT/HCPCS: 81025; 88304; A9270-GY; J0690; J2250; J2704; J3010

== ENCOUNTER 2017-12-31 10:02 | Emergency (ER) | payer BC ==
[2017-12-31] MEDS ORDERED: NS 0.9% 1000 ML* 1,000 ML IV ONE (10:21)
[2017-12-31] MEDS ORDERED: diPHENhydraMINE IV* 50 MG/ML 1 ml VIAL (BENADRYL) IV ONE (10:21)
[2017-12-31] MEDS ORDERED: Ketorolac INJ* 30 MG/ML 1 ML VIAL IV ONE (10:21)
[2017-12-31] MEDS ORDERED: Metoclopramide IV* 5 MG/ML 2 ML VIAL IV ONE (10:23)
[2017-12-31 10:40] LABS: ABS Basophils 0.1 10^3/ul (0-0.2); ABS Eosinophils 0.3 10^3/ul (0-0.6); ABS Lymphocytes 1.7 10^3/ul (1.0-4.8); ABS Monocytes 0.5 10^3/ul (0-0.8); ABS Neutrophils 6.7 10^3/ul (1.5-7.7); ABS Nucleated RBC 0 10^3/ul; Hematocrit 43 % (35-47); Hemoglobin 14.7 g/dl (12.0-16.0); Lymphocyte % 18.2 % (25-47); Mean Corpuscular HGB Conc 35 g/dl (31-36); Mean Corpuscular Hemoglobin 31 pg (27-31); Mean Corpuscular Volume 90 fL (80-97); Nucleated Red Blood Cells % 0; Platelet Count 308 10^3/ul (150-450); Red Blood Count 4.74 10^6/ul (4.0-5.4); Red Cell Distribution Width 16 % (10.5-15); White Blood Count 9.4 10^3/ul (3.5-10.8)
[2017-12-31 10:47] LABS: INR 0.86 (0.77-1.02)
[2017-12-31 10:59] LABS: EGFR Non-African American 105.4 (>60)
[2017-12-31] MEDS ORDERED: Promethazine TAB* 25 MG PO ONE (11:21)
[2017-12-31 11:41] VITALS: BP 148/74
--- NOTE | 2017-12-31 15:16 | ED ---
Brad Thompson Julia, scribed for Davonte Rivera MD on 12/31/17 at 1026 . Complex/Multi-Sys Presentation - HPI Summary HPI Summary: This patient is a 52 year old F presenting to [facility] with a chief complaint of intermittent left shoulder, left foot, numbness and pain with a headache described as heaviness for the past two days worsening today. Patient reports a fast and irregular heartbeat on her at home monitor. She reports a history of anxiety, but the numbness/pain and headache are different from previous symptoms. She reports an elevated heart rate is typical with her anxiety. She states she isn't anxious now but was prior to arrival Pt denies chest pain, SOB , and vision changes. Patient is taking Cardizem for HTN. - History Of Current Complaint Time Seen by Provider: 12/31/17 10:14 Hx Obtained From: Patient Onset/Duration: Gradual Onset, Lasting Days Severity Currently: Mild Severity Initially: Moderate Location: Pain At: - and numbess at left shoulder and foot Character: Pressure - headache described as "heaviness" Associated Signs And Symptoms: Positive: Headache, Palpitations, Other. Negative: SOB, Chest Pain - Allergies/Home Medications Allergies/Adverse Reactions: Allergies Allergy/AdvReac Type Severity Reaction Status Date / Time codeine Allergy See Comment Verified 12/31/17 10:27 Home Medications: Home Medications Diltiazem CD CAP* [Cardizem CD CAP*] 180 mg PO BID 12/31/17 [History Confirmed 12/31/17] hydrOXYzine HCL TAB* [Atarax 10 MG TAB*] 10 mg PO DAILY PRN 12/31/17 [History Confirmed 12/31/17] PMH/Surg Hx/FS Hx/Imm Hx Endocrine/Hematology History: Denies: Hx Diabetes, Hx Thyroid Disease Cardiovascular History: Reports: Hx Hypertension - on meds Denies: Hx Hypercholesterolemia, Hx Pacemaker/ICD, Hx Peripheral Vascular Disease Comment Only: Other Cardiovascular Problems/Disorders - tachycardia Respiratory History: Denies: Hx Asthma, Hx Chronic Obstructive Pulmonary Disease (COPD) GI History: Denies: Hx Ulcer, Other GI Disorders History: Reports: Hx Kidney Stones - in the past Musculoskeletal History: Denies: Hx Arthritis, Hx Osteoporosis Sensory History: Denies: Hx Cataracts, Hx Contacts or Glasses, Hx Glaucoma, Hx Hearing Aid Opthamlomology History: Denies: Hx Cataracts, Hx Contacts or Glasses, Hx Glaucoma Neurological History: Denies: Hx Headaches, Hx Seizures, Hx Transient Ischemic Attacks (TIA), Other Neuro Impairments/Disorders Psychiatric History: Reports: Hx Anxiety - on meds prn Denies: Hx Depression, Hx Panic Disorder - Cancer History Hx Chemotherapy: No Hx Radiation Therapy: No - Surgical History Hx Anesthesia Reactions: No Infectious Disease History: Denies: Hx Clostridium Difficile, Hx Hepatitis, Hx Human Immunodeficiency Virus (HIV), Hx of Known/Suspected MRSA, Hx Shingles, Hx Tuberculosis, Hx Known/ Suspected VRE, Hx Known/Suspected VRSA, History Other Infectious Disease - Family History Known Family History: Negative: Cardiac Disease, Hypertension - Social History Alcohol Use: Daily Alcohol Amount: 8 beers/day Hx Substance Use: No Substance Use Type: Reports: Marijuana Substance Use Comment - Amount & Last Used: nightly for sleep Hx Tobacco Use: Yes Smoking Status (MU): Heavy Every Day Tobacco Smoker Amount Used/How Often: 1-1.5 PPD for 30 yrs Review of Systems Positive: Palpitations. Negative: Chest Pain Negative: Shortness Of Breath Positive: Myalgia - left shoulder and foot Positive: Headache, Numbness - left shoulder and foot Positive: Anxious All Other Systems Reviewed And Are Negative: Yes Physical Exam - Summary Physical Exam Summary: Appearance: Well appearing, no pain distress, anxious Skin: warm, dry, reflects adequate perfusion Head/face: normal Eyes: EOMI, YEFRI ENT: normal Neck: supple, non-tender Respiratory: CTA, breath sounds present Cardiovascular: regular rhythm, tachycardic rate, pulses symmetrical Abdomen: non-tender, soft Bowel Sounds: present Musculoskeletal: normal, strength/ROM intact Neuro: normal, sensory motor intact, A&Ox3, cranial nerves intact Triage Information Reviewed: Yes Vital Signs On Initial Exam: Initial Vitals Temp Pulse Resp BP Pulse Ox 98.0 F 100 16 143/93 97 12/31/17 10:19 12/31/17 10:19 12/31/17 10:19 12/31/17 10:19 12/31/17 10:19 Vital Signs Reviewed: Yes Diagnostics - Vital Signs Vital Signs Temp Pulse Resp BP Pulse Ox 12/31/17 11:40 98.4 F 79 15 148/74 100 12/31/17 11:00 81 15 149/84 97 12/31/17 10:30 88 18 144/99 98 12/31/17 10:21 105 17 99 12/31/17 10:20 143/93 12/31/17 10:19 98.0 F 100 16 143/93 97 - Laboratory Lab Results: Lab Results 12/31/17 12/31/17 12/31/17 Range/Units 10:30 10:30 10:30 WBC 9.4 (3.5-10.8) 10^3/ul RBC 4.74 (4.0-5.4) 10^6/ul Hgb 14.7 (12.0-16.0) g/dl Hct 43 (35-47) % MCV 90 (80-97) fL MCH 31 (27-31) pg MCHC 35 (31-36) g/dl RDW 16 H (10.5-15) % Plt Count 308 (150-450) 10^3/ul MPV 7.0 L (7.4-10.4) um3 Neut % (Auto) 71.9 (38-83) % Lymph % (Auto) 18.2 L (25-47) % Wells % (Auto) 5.4 (0-7) % Eos % (Auto) 3.0 (0-6) % Baso % (Auto) 1.5 (0-2) % Absolute Neuts (auto) 6.7 (1.5-7.7) 10^3/ul Absolute Lymphs (auto) 1.7 (1.0-4.8) 10^3/ul Absolute Monos (auto) 0.5 (0-0.8) 10^3/ul Absolute Eos (auto) 0.3 (0-0.6) 10^3/ul Absolute Basos (auto) 0.1 (0-0.2) 10^3/ul Absolute Nucleated RBC 0 10^3/ul Nucleated RBC % 0 INR (Anticoag Therapy) 0.86 (0.77-1.02) Sodium 139 (139-145) mmol/L Potassium 4.2 (3.5-5.0) mmol/L Chloride 106 (101-111) mmol/L Carbon Dioxide 27 (22-32) mmol/L Anion Gap 6 (2-11) mmol/L BUN 11 (6-24) mg/dL Creatinine 0.60 (0.51-0.95) mg/dL Est GFR ( Amer) 135.5 (>60) Est GFR (Non-Af Amer) 105.4 (>60) BUN/Creatinine Ratio 18.3 (8-20) Glucose 119 H (70-100) mg/dL Lactic Acid (0.5-2.0) mmol/L Calcium 9.5 (8.6-10.3) mg/dL Total Bilirubin 0.30 (0.2-1.0) mg/dL AST 17 (13-39) U/L ALT 20 (7-52) U/L Alkaline Phosphatase 75 (34-104) U/L Total Creatine Kinase 75 (10-223) U/L Troponin I 0.00 (<0.04) ng/mL Total Protein 6.9 (6.4-8.9) g/dL Albumin 4.2 (3.2-5.2) g/dL Globulin 2.7 (2-4) g/dL Albumin/Globulin Ratio 1.6 (1-3) TSH 0.64 (0.34-5.60) mcIU/mL Thyroxine (T4) 8.57 (6.09-12.23) mcg/mL 12/31/17 Range/Units 10:30 WBC (3.5-10.8) 10^3/ul RBC (4.0-5.4) 10^6/ul Hgb (12.0-16.0) g/dl Hct (35-47) % MCV (80-97) fL MCH (27-31) pg MCHC (31-36) g/dl RDW (10.5-15) % Plt Count (150-450) 10^3/ul MPV (7.4-10.4) um3 Neut % (Auto) (38-83) % Lymph % (Auto) (25-47) % Wells % (Auto) (0-7) % Eos % (Auto) (0-6) % Baso % (Auto) (0-2) % Absolute Neuts (auto) (1.5-7.7) 10^3/ul Absolute Lymphs (auto) (1.0-4.8) 10^3/ul Absolute Monos (auto) (0-0.8) 10^3/ul Absolute Eos (auto) (0-0.6) 10^3/ul Absolute Basos (auto) (0-0.2) 10^3/ul Absolute Nucleated RBC 10^3/ul Nucleated RBC % INR (Anticoag Therapy) (0.77-1.02) Sodium (139-145) mmol/L Potassium (3.5-5.0) mmol/L Chloride (101-111) mmol/L Carbon Dioxide (22-32) mmol/L Anion Gap (2-11) mmol/L BUN (6-24) mg/dL Creatinine (0.51-0.95) mg/dL Est GFR ( Amer) (>60) Est GFR (Non-Af Amer) (>60) BUN/Creatinine Ratio (8-20) Glucose (70-100) mg/dL Lactic Acid 1.2 (0.5-2.0) mmol/L Calcium (8.6-10.3) mg/dL Total Bilirubin (0.2-1.0) mg/dL AST (13-39) U/L ALT (7-52) U/L Alkaline Phosphatase (34-104) U/L Total Creatine Kinase (10-223) U/L Troponin I (<0.04) ng/mL Total Protein (6.4-8.9) g/dL Albumin (3.2-5.2) g/dL Globulin (2-4) g/dL Albumin/Globulin Ratio (1-3) TSH (0.34-5.60) mcIU/mL Thyroxine (T4) (6.09-12.23) mcg/mL Result Diagrams: 12/31/17 10:30 12/31/17 10:30 Lab Statement: Any lab studies that have been ordered have been reviewed, and results considered in the medical decision making process. - EKG 1039 Cardiac Rate: NL - at 83 BPM EKG Rhythm: Sinus Rhythm ST Segment: Normal EKG Interpretation: nml axis, nml interval, poor R wave progression Re-Evaluation - Re-Evaluation 1 Re-Evaluation Time: 11:17 Change: Improved - Pt feels better. Heart rate is now 70 without medication. Complex Multi-Symp Course/Dx Course Of Treatment: pt with hx of anxiety with intermittent heart racing, numbness and apical headache. Tx GUZMAN with significant improvement which improved other sx. No arrhythmia noted. Thyroids nl. No lab abnormality. To f/u with PMD. Had not been taking her oral hydroxyzine. - Diagnoses Differential Diagnoses/HQI/PQRI: Metabolic Abnormality, Other - migraine, anxiety disorder, arrhythmia Provider Diagnoses: Headache, Anxiety Discharge - Sign-Out/Discharge Documenting (check all that apply): Discharge - Discharge Plan Condition: Good Disposition: HOME Prescriptions: Promethazine TAB* [Phenergan Tab*] 25 mg PO Q6H PRN #20 tab PRN Reason: headache/nausea Patient Education Materials: Acute Headache (ED), Anxiety (ED) Referrals: [facility] [Outside] Meghna Sidhu NP [Primary Care Provider] - Additional Instructions: Follow up with your doctor OR call the referral line for a new doctor. Stay well hydrated. Some caffeine may help. Get some sleep. Return if worse, weakness, trouble speaking, worsening headaches, or other concerns as discussed. - Billing Disposition and Condition Condition: GOOD Disposition: HOME The documentation as recorded by the Brad gibbons Julia accurately reflects the service I personally performed and the decisions made by me, Davonte Rivera MD.
== END 2017-12-31 11:40 | disposition home or self-care (01) ==
LOC: ED 10:02
DX: R51 Headache (principal); F41.9 Anxiety disorder, unspecified; R00.2 Palpitations; I10 Essential (primary) hypertension; Z88.5 Allergy status to narcotic agent; F17.210 Nicotine dependence, cigarettes, uncomplicated
CPT/HCPCS: 36415; 80053; 82550; 83605; 84436; 84443; 84484; 85025; 85610; 93005; 96374; 96375; 99282; J1200; J1885

== ENCOUNTER 2018-05-15 19:02 | Emergency (ER) | payer BC ==
[2018-05-15 20:05] LABS: Hematocrit 45 % (35-47); Hemoglobin 15.7 g/dl (12.0-16.0); Mean Corpuscular HGB Conc 35 g/dl (31-36); Mean Corpuscular Hemoglobin 32 pg (27-31); Mean Corpuscular Volume 92 fL (80-97); Platelet Count 333 10^3/ul (150-450); Red Blood Count 4.89 10^6/ul (4.00-5.40); Red Cell Distribution Width 16 % (10.5-15); White Blood Count 9.8 10^3/ul (3.5-10.8)
[2018-05-15 20:12] LABS: ABS Basophils 0.1 10^3/ul (0-0.2); ABS Eosinophils 0.2 10^3/ul (0-0.6); ABS Lymphocytes 2.3 10^3/ul (1.0-4.8); ABS Monocytes 0.7 10^3/ul (0-0.8); ABS Neutrophils 6.5 10^3/ul (1.5-7.7); ABS Nucleated RBC 0 10^3/ul; Lymphocyte % 23.7 % (25-47); Nucleated Red Blood Cells % 0.1
[2018-05-15 20:20] LABS: INR 0.86 (0.77-1.02)
[2018-05-15 20:23] LABS: EGFR Non-African American 103.4 (>60)
--- NOTE | 2018-05-15 20:39 | RAD ---
EXAM: CT Head Without Intravenous Contrast CLINICAL HISTORY: 52 years old, female; Signs and symptoms; Numbness / parasthesia; Left; Additional info: HTN, left arm and left foot numbness TECHNIQUE: Axial computed tomography images of the head/brain without intravenous contrast. COMPARISON: No relevant prior studies available. FINDINGS: Brain: Unremarkable. No hemorrhage. No significant white matter disease. No edema. Ventricles: Unremarkable. No ventriculomegaly. Bones/joints: Unremarkable. No acute fracture. Soft tissues: Unremarkable. Sinuses: Unremarkable as visualized. No acute sinusitis. Mastoid air cells: Unremarkable as visualized. No mastoid effusion. IMPRESSION: NO EVIDENCE FOR GROSS ACUTE INFARCT, MASS EFFECT OR HEMORRHAGE.
--- NOTE | 2018-05-15 20:53 | ED ---
Complex/Multi-Sys Presentation - HPI Summary HPI Summary: This is scribe Roc Marie documenting for attending Dr. Pal JARQUIN. Pt is a 52 y/o F who presents to ED c/o hypertension for the past week. She has been waking up from her sleep feeling like her heart was racing and that she has high blood pressure. She has a monitor at home with which she checks it with and it has been around 180/107 with a pulse of 104 according to her. Notes diffuse headache, sole of her foot tingling, and tightness in left arm. Denies chest pain or dizziness. Pt medications are Cardizam 180 mg 2 daily, HCTZ 25 mg 1 a day, and Hydroxyzine 25 mg. PMHx of hypertension and anxiety. FHx of hypertension. Pt states she took both of her anti-hypertensive medications just before coming to the ED. I, Dr. Aguillon, personally performed the services described in this documentation as scribed in my presence and it is both accurate and complete. Home Medications Medication Instructions Recorded Confirmed Type Diltiazem CD CAP* [Cardizem CD 180 mg PO BID 12/31/17 12/31/17 History CAP*] Promethazine TAB* [Phenergan Tab*] 25 mg PO Q6H PRN #20 tab 12/31/17 Rx hydrOXYzine HCL TAB* [Atarax 10 MG 10 mg PO DAILY PRN 12/31/17 12/31/17 History TAB*] - History Of Current Complaint Chief Complaint: EDHypertension Time Seen by Provider: 05/15/18 19:24 Hx Obtained From: Patient Onset/Duration: Lasting Days Timing: Intermittent, Lasting:, Hours Severity Currently: None Severity Initially: Moderate Location: Pain At: - left arm Character: Dull Aggravating Factor(s): Nothing Alleviating Factor(s): Nothing Associated Signs And Symptoms: Positive: Headache, Other - left arm pain, left foot numbness. Negative: Dizziness, Chest Pain - Allergies/Home Medications Allergies/Adverse Reactions: Allergies Allergy/AdvReac Type Severity Reaction Status Date / Time codeine Allergy See Comment Verified 12/31/17 10:27 PMH/Surg Hx/FS Hx/Imm Hx Previously Healthy: No Endocrine/Hematology History: Denies: Hx Diabetes, Hx Thyroid Disease Cardiovascular History: Reports: Hx Hypertension - on meds Denies: Hx Hypercholesterolemia, Hx Pacemaker/ICD, Hx Peripheral Vascular Disease Comment Only: Other Cardiovascular Problems/Disorders - tachycardia Respiratory History: Denies: Hx Asthma, Hx Chronic Obstructive Pulmonary Disease (COPD) GI History: Denies: Hx Ulcer, Other GI Disorders History: Reports: Hx Kidney Stones Musculoskeletal History: Denies: Hx Arthritis, Hx Osteoporosis Sensory History: Denies: Hx Cataracts, Hx Contacts or Glasses, Hx Glaucoma, Hx Hearing Aid Opthamlomology History: Denies: Hx Cataracts, Hx Contacts or Glasses, Hx Glaucoma Neurological History: Denies: Hx Headaches, Hx Seizures, Hx Transient Ischemic Attacks (TIA), Other Neuro Impairments/Disorders Psychiatric History: Reports: Hx Anxiety - on meds prn Denies: Hx Depression, Hx Panic Disorder - Cancer History Hx Chemotherapy: No Hx Radiation Therapy: No - Surgical History Surgery Procedure, Year, and Place: Hemorrhoid surgery Hx Anesthesia Reactions: No Infectious Disease History: No Infectious Disease History: Denies: Hx Clostridium Difficile, Hx Hepatitis, Hx Human Immunodeficiency Virus (HIV), Hx of Known/Suspected MRSA, Hx Shingles, Hx Tuberculosis, Hx Known/ Suspected VRE, Hx Known/Suspected VRSA, History Other Infectious Disease, Traveled Outside the [place] in Last 30 Days - Family History Known Family History: Positive: Hypertension Negative: Cardiac Disease - Social History Lives: With Family Alcohol Use: Daily Alcohol Amount: 8 beers/day Hx Substance Use: No Substance Use Type: Reports: Marijuana Substance Use Comment - Amount & Last Used: nightly for sleep Hx Tobacco Use: Yes Smoking Status (MU): Heavy Every Day Tobacco Smoker Amount Used/How Often: 1-1.5 PPD for 30 yrs Review of Systems Positive: Other - hypertension, NEGATIVE: dizziness Negative: Chest Pain Respiratory: Negative Gastrointestinal: Negative Positive: no symptoms reported Musculoskeletal: Negative Skin: Negative Positive: Headache, Paresthesia - sole of left foot and left arm Psychological: Normal All Other Systems Reviewed And Are Negative: Yes Physical Exam - Summary Physical Exam Summary: Appearance: Well-appearing, moderate pain distress, well-nourished, hypertensive Skin: Warm, color reflects adequate perfusion, dry Head: Normal Head/Face inspection, atraumatic Eyes: Conjunctiva clear ENT: Normal inspection Neck: Supple, no nodes, no JVD Respiratory: Lungs clear, normal breath sounds, no respiratory distress Cardio: RRR, No murmur, pulses normal, brisk capillary refill Abdomen: Soft, nontender Bowel sounds: Present Musculoskeletal: Strength Intact/ROM intact, no calf tenderness, no edema. Psychological: Normal Neuro Exam A&O x3, CN II-XII intact, motor function 5/5, sensation intact, cerebellar normal Triage Information Reviewed: Yes Vital Signs On Initial Exam: Initial Vitals Temp Pulse Resp BP Pulse Ox 98.8 F 114 20 142/107 98 05/15/18 19:13 05/15/18 19:13 05/15/18 19:13 05/15/18 19:13 05/15/18 19:13 Vital Signs Reviewed: Yes Diagnostics - Vital Signs Vital Signs Temp Pulse Resp BP Pulse Ox 05/15/18 19:13 98.8 F 114 20 142/107 98 - Laboratory Lab Results: Lab Results 05/15/18 05/15/18 05/15/18 Range/Units 19:57 19:57 19:57 WBC 9.8 (3.5-10.8) 10^3/ul RBC 4.89 (4.00-5.40) 10^6/ul Hgb 15.7 (12.0-16.0) g/dl Hct 45 (35-47) % MCV 92 (80-97) fL MCH 32 H (27-31) pg MCHC 35 (31-36) g/dl RDW 16 H (10.5-15) % Plt Count 333 (150-450) 10^3/ul MPV 7.0 L (7.4-10.4) um3 Neut % (Auto) 66.1 (38-83) % Lymph % (Auto) 23.7 L (25-47) % [place] % (Auto) 7.1 H (0-7) % Eos % (Auto) 2.0 (0-6) % Baso % (Auto) 1.1 (0-2) % Absolute Neuts (auto) 6.5 (1.5-7.7) 10^3/ul Absolute Lymphs (auto) 2.3 (1.0-4.8) 10^3/ul Absolute Monos (auto) 0.7 (0-0.8) 10^3/ul Absolute Eos (auto) 0.2 (0-0.6) 10^3/ul Absolute Basos (auto) 0.1 (0-0.2) 10^3/ul Absolute Nucleated RBC 0 10^3/ul Nucleated RBC % 0.1 INR (Anticoag Therapy) 0.86 (0.77-1.02) APTT 30.9 (26.0-36.3) seconds D-Dimer, Quantitative < 200 (Less Than 230) ng/mL Sodium 138 (135-145) mmol/L Potassium 3.6 (3.5-5.0) mmol/L Chloride 102 (101-111) mmol/L Carbon Dioxide 27 (22-32) mmol/L Anion Gap 9 (2-11) mmol/L BUN 11 (6-24) mg/dL Creatinine 0.61 (0.51-0.95) mg/dL Est GFR ( Amer) 125.1 (>60) Est GFR (Non-Af Amer) 103.4 (>60) BUN/Creatinine Ratio 18.0 (8-20) Glucose 118 H (70-100) mg/dL Lactic Acid (0.5-2.0) mmol/L Calcium 9.7 (8.6-10.3) mg/dL Total Bilirubin 0.30 (0.2-1.0) mg/dL AST 18 (13-39) U/L ALT 18 (7-52) U/L Alkaline Phosphatase 71 (34-104) U/L Total Creatine Kinase 92 (10-223) U/L CK-MB (CK-2) 1.7 (0.6-6.3) ng/mL Troponin I 0.00 (<0.04) ng/mL B-Natriuretic Peptide ( - 100) pg/mL Total Protein 7.6 (6.4-8.9) g/dL Albumin 4.4 (3.2-5.2) g/dL Globulin 3.2 (2-4) g/dL Albumin/Globulin Ratio 1.4 (1-3) TSH Pending Thyroxine (T4) Pending 05/15/18 05/15/18 Range/Units 19:57 19:57 WBC (3.5-10.8) 10^3/ul RBC (4.00-5.40) 10^6/ul Hgb (12.0-16.0) g/dl Hct (35-47) % MCV (80-97) fL MCH (27-31) pg MCHC (31-36) g/dl RDW (10.5-15) % Plt Count (150-450) 10^3/ul MPV (7.4-10.4) um3 Neut % (Auto) (38-83) % Lymph % (Auto) (25-47) % [place] % (Auto) (0-7) % Eos % (Auto) (0-6) % Baso % (Auto) (0-2) % Absolute Neuts (auto) (1.5-7.7) 10^3/ul Absolute Lymphs (auto) (1.0-4.8) 10^3/ul Absolute Monos (auto) (0-0.8) 10^3/ul Absolute Eos (auto) (0-0.6) 10^3/ul Absolute Basos (auto) (0-0.2) 10^3/ul Absolute Nucleated RBC 10^3/ul Nucleated RBC % INR (Anticoag Therapy) (0.77-1.02) APTT (26.0-36.3) seconds D-Dimer, Quantitative (Less Than 230) ng/mL Sodium (135-145) mmol/L Potassium (3.5-5.0) mmol/L Chloride (101-111) mmol/L Carbon Dioxide (22-32) mmol/L Anion Gap (2-11) mmol/L BUN (6-24) mg/dL Creatinine (0.51-0.95) mg/dL Est GFR ( Amer) (>60) Est GFR (Non-Af Amer) (>60) BUN/Creatinine Ratio (8-20) Glucose (70-100) mg/dL Lactic Acid 1.2 (0.5-2.0) mmol/L Calcium (8.6-10.3) mg/dL Total Bilirubin (0.2-1.0) mg/dL AST (13-39) U/L ALT (7-52) U/L Alkaline Phosphatase (34-104) U/L Total Creatine Kinase (10-223) U/L CK-MB (CK-2) (0.6-6.3) ng/mL Troponin I (<0.04) ng/mL B-Natriuretic Peptide 34 ( - 100) pg/mL Total Protein (6.4-8.9) g/dL Albumin (3.2-5.2) g/dL Globulin (2-4) g/dL Albumin/Globulin Ratio (1-3) TSH Thyroxine (T4) Result Diagrams: 05/15/18 19:57 05/15/18 19:57 Lab Statement: Any lab studies that have been ordered have been reviewed, and results considered in the medical decision making process. - Radiology chest xray Radiology Interpretation Completed By: ED Physician - NAD, no change c/w 07/30/17 - CT Brain CT CT Interpretation Completed By: Radiologist - Impression: No acute intracranial abnormality. ED Physician reviewed this report. - EKG 19:32 Cardiac Rate: NL EKG Rhythm: Sinus Rhythm ST Segment: Non-Specific Ectopy: None EKG Interpretation: Nl AVIVCT, Nl QTc, nl axis, no acute changes EKG Comparison: No Significant Change - c/w 12/31/17 Re-Evaluation - Re-Evaluation First Eval Re-Evaluation Time: 22:00 Change: Improved Comment: BP 146/93, P 76. No arm pain, no numbness, no CP, no SOB. Feels well. Second Eval Re-Evaluation Time: 22:30 Change: Improved Comment: Continues with no CP, no GUZMAN, dizziness or paresthesias. BP 142/76. Boyfriend and daughter with pt. Care to Dr. Rivera, pending second troponin. Third Eval Re-Evaluation Time: 22:53 Change: Improved Comment: The patient is feeling better her bp is 145/75 and she has no sx. Awaiting 3 hr troponin. Advised that the CXR reading is preliminary, by ED physician only, and that pt will be contacted if any change in the reading. Complex Multi-Symp Course/Dx Course Of Treatment: Pt is a 52 y/o F who presents to ED c/o hypertension for the past week, despite taking her cardizem and HCTZ as directed. Also with UGZMAN, paresthesias and left arm tightness. Brain CT showed no acute intracranial abnormality. CXR unofficial reading by Dr. Aguillon is NAD. EKG is SR without any acute changes. Initial troponin in zero, d dimer is less than 200. Pt's BP improved spontaneously in the ED without medication, and pt's symptoms resolved. Care to Dr. Rivera at change of shift 22:30 05/15/18, pending 3 hr troponin. - Diagnoses Differential Diagnoses/HQI/PQRI: Cardiac Ischemia, CVA, Metabolic Abnormality Provider Diagnoses: Uncontrolled hypertension, Anxiety Discharge - Sign-Out/Discharge Documenting (check all that apply): Sign-Out Patient Signing out patient TO: Davonte Rivera - pending 3 hr troponin and re-eval - Discharge Plan Condition: Improved Disposition: HOME Patient Education Materials: Chronic Hypertension (ED), Anxiety (ED) Referrals: Meghna Sidhu NP [Primary Care Provider] - Additional Instructions: Call your doctor first thing in the morning to schedule prompt follow-up. Return with chest pain, shortness of breath, new symptoms or other concerns as discussed. - Billing Disposition and Condition Condition: IMPROVED Disposition: Home
[2018-05-15 22:18] LABS: Urine Appearance Clear; Urine Blood Negative (Negative); Urine Color Straw; Urine Ketones Negative (Negative); Urine Protein Negative (Negative); Urine Specific Gravity 1.006 (1.010-1.030); Urine Urobilinogen Negative (Negative)
[2018-05-15 22:53] VITALS: BP 142/86
--- NOTE | 2018-05-15 22:54 | ED ---
Progress - Progress Note Progress Note: This patient was signed out from Dr. aguillon awacedric marino. Trop was negative. Re-Evaluation - Re-Evaluation First Eval Re-Evaluation Time: 22:00 Change: Improved Comment: BP 146/93, P 76. No arm pain, no numbness, no CP, no SOB. Feels well. Second Eval Re-Evaluation Time: 22:30 Change: Improved Comment: Continues with no CP, no GUZMAN, dizziness or paresthesias. BP 142/76. Boyfriend and daughter with pt. Care to Dr. Rivera, pending second troponin. Third Eval Re-Evaluation Time: 22:53 Change: Improved Comment: The patient is feeling better her bp is 145/75 and she has no sx. Course/Dx - Course Course Of Treatment: This patient was signed out from Dr. lebron marino. Trop was negative. Currently the pt is feeling better and has no sx. - Diagnoses Provider Diagnoses: Uncontrolled hypertension, Anxiety Discharge - Sign-Out/Discharge Documenting (check all that apply): Patient Departure, Receiving Sign-Out Receiving patient FROM: Kaye Aguillon - Discharge Plan Condition: Improved Disposition: HOME Patient Education Materials: Chronic Hypertension (ED), Anxiety (ED) Referrals: Meghna Sidhu NP [Primary Care Provider] - Additional Instructions: Call your doctor first thing in the morning to schedule prompt follow-up. Return with chest pain, shortness of breath, new symptoms or other concerns as discussed.
--- NOTE | 2018-05-16 07:15 | RAD ---
HISTORY: HTN, left arm pain COMPARISONS: August 08, 2017 VIEWS: 4: Frontal dual-energy and lateral views of the chest. FINDINGS: CARDIOMEDIASTINAL SILHOUETTE: The cardiomediastinal silhouette is normal. REENA: The reena are normal. PLEURA: The costophrenic angles are sharp. No pleural abnormalities are noted. LUNG PARENCHYMA: There is hyperinflation with flattening of the diaphragm and expansion of the AP diameter of the chest. ABDOMEN: The upper abdomen is clear. There is no subphrenic gas. BONES AND SOFT TISSUES: No bone or soft tissue abnormalities are noted. OTHER: None. IMPRESSION: HYPERINFLATION, CONSISTENT WITH COPD. NO ACTIVE CARDIOPULMONARY DISEASE. R0
== END 2018-05-15 23:11 | disposition home or self-care (01) ==
LOC: ED 19:02
DX: I10 Essential (primary) hypertension (principal); F41.9 Anxiety disorder, unspecified; Z88.5 Allergy status to narcotic agent; F17.210 Nicotine dependence, cigarettes, uncomplicated
CPT/HCPCS: 36415; 70450; 71046; 80053; 81003; 82550; 82553; 83605; 83880; 84436; 84443; 84484; 85025; 85379; 85610; 85730; 93005; 99283

== ENCOUNTER 2018-10-05 14:28 | Emergency (ER) | payer BC ==
[2018-10-05] MEDS ORDERED: Aspirin 81 mg CHEW TAB* 81 MG TAB.CHEW PO ONE (14:54)
--- NOTE | 2018-10-05 15:02 | ED ---
HPI Cardiac - HPI Summary HPI Summary: The patient is a 53 y/o F presenting to [facility] with a chief complaint of fast heart palpitations for a few weeks with newer onset of pressure from the left shoulder down left arm for a few days which is worse at night. She has had episodes of this before, and her PCP adjusted her medications at that time. She additionally c/o SOB, but she states it may be secondary to increased smoking of cigarettes and marijuana as a result of recent stress. She denies dizziness, nausea, and chest pain/pressure. She has hx of anxiety and HTN but denies diabetes, HLD, UT, and thyroid disorder. Surgical hx of hemorrhoid surgery. She reports everyday drinker of wine. - History of Current Complaint Chief Complaint: EDDysrhythmPalp Stated Complaint: HEART RACING Time Seen by Provider: 10/05/18 14:48 Hx Obtained From: Patient Hx Last Menstrual Period: now Onset/Duration: Started Days Ago - left shoulder and arm pressure started within the last few days, Started Weeks Ago - heart palpitations started a few weeks ago Timing: Lasting Days Initial Severity: Moderate Current Severity: Mild Pain Intensity: 0 Pain Scale Used: 0-10 Numeric Chest Pain Radiates: No Character: Fast Aggravating Factor(s): Nothing Alleviating Factor(s): Nothing Associated Signs and Symptoms: Positive: Recent Stress, Shortness of Breath, Other: - pressure from the left shoulder down left arm. Negative: Chest Pain - or pressure, Dizziness, Nausea - Allergy/Home Medications Allergies/Adverse Reactions: Allergies Allergy/AdvReac Type Severity Reaction Status Date / Time codeine Allergy See Comment Verified 12/31/17 10:27 Home Medications: Home Medications Chlorthalidone TAB* [Hygroton TAB*] 25 mg PO DAILY 10/05/18 [History Confirmed 10/05/18] PMH/Surg Hx/FS Hx/Imm Hx Endocrine/Hematology History: Denies: Hx Diabetes, Hx Thyroid Disease Cardiovascular History: Reports: Hx Hypertension - on meds Denies: Hx Hypercholesterolemia, Hx Pacemaker/ICD, Hx Peripheral Vascular Disease Comment Only: Other Cardiovascular Problems/Disorders - tachycardia Respiratory History: Denies: Hx Asthma, Hx Chronic Obstructive Pulmonary Disease (COPD) GI History: Denies: Hx Ulcer, Other GI Disorders History: Reports: Hx Kidney Stones Musculoskeletal History: Denies: Hx Arthritis, Hx Osteoporosis Sensory History: Denies: Hx Cataracts, Hx Contacts or Glasses, Hx Glaucoma, Hx Hearing Aid Opthamlomology History: Denies: Hx Cataracts, Hx Contacts or Glasses, Hx Glaucoma Neurological History: Denies: Hx Headaches, Hx Seizures, Hx Transient Ischemic Attacks (TIA), Other Neuro Impairments/Disorders Psychiatric History: Reports: Hx Anxiety - on meds prn Denies: Hx Depression, Hx Panic Disorder - Cancer History Hx Chemotherapy: No Hx Radiation Therapy: No - Surgical History Surgery Procedure, Year, and Place: Hemorrhoid surgery Hx Anesthesia Reactions: No Infectious Disease History: No Infectious Disease History: Denies: Hx Clostridium Difficile, Hx Hepatitis, Hx Human Immunodeficiency Virus (HIV), Hx of Known/Suspected MRSA, Hx Shingles, Hx Tuberculosis, Hx Known/ Suspected VRE, Hx Known/Suspected VRSA, History Other Infectious Disease, Traveled Outside the [place] in Last 30 Days - Family History Known Family History: Positive: Hypertension Negative: Cardiac Disease Family History: denies cardiovascular issues in family lineage - Social History Alcohol Use: Daily Alcohol Amount: 8 beers/day Hx Substance Use: No Substance Use Type: Reports: Marijuana Substance Use Comment - Amount & Last Used: nightly for sleep Hx Tobacco Use: Yes Smoking Status (MU): Heavy Every Day Tobacco Smoker Amount Used/How Often: 1-1.5 PPD for 30 yrs Review of Systems Positive: Other - recent stress Positive: Palpitations. Negative: Chest Pain - or pressure Positive: Shortness Of Breath Negative: Nausea Positive: Other - pressure from the left shoulder down left arm Neurological: Other - NEGATIVE: dizziness All Other Systems Reviewed And Are Negative: Yes Physical Exam - Summary Physical Exam Summary: VITAL SIGNS: Reviewed. GENERAL: Patient is a well-developed and nourished female who is lying comfortable in the stretcher. Patient is not in any acute respiratory distress. Profound smell of nicotine. HEAD AND FACE: No signs of trauma. No ecchymosis, hematomas or skull depressions. No sinus tenderness. EYES: PERRLA, EOMI x 2, No injected conjunctiva, no nystagmus. EARS: Hearing grossly intact. Ear canals and tympanic membranes are within normal limits. MOUTH: Oropharynx within normal limits. NECK: Supple, trachea is midline, no adenopathy, no JVD, no carotid bruit, no c- spine tenderness, neck with full ROM. CHEST: Symmetric, no tenderness at palpation LUNGS: Clear to auscultation bilaterally. No wheezing or crackles. CVS: Regular rate and rhythm, S1 and S2 present, no murmurs or gallops appreciated. ABDOMEN: Soft, non-tender. No signs of distention. No rebound no guarding, and no masses palpated. Bowel sounds are normal. EXTREMITIES: FROM in all major joints, no edema, no cyanosis or clubbing. NEURO: Alert and oriented x 3. No acute neurological deficits. Speech is normal and follows commands. SKIN: Dry and warm Triage Information Reviewed: Yes Vital Signs On Initial Exam: Initial Vitals Temp Pulse Resp BP Pulse Ox 97.3 F 98 19 196/104 97 10/05/18 14:43 10/05/18 14:43 10/05/18 14:43 10/05/18 14:43 10/05/18 14:43 Vital Signs Reviewed: Yes Diagnostics - Vital Signs Vital Signs Temp Pulse Resp BP Pulse Ox 10/05/18 14:43 97.3 F 98 19 196/104 97 - Laboratory Result Diagrams: 10/05/18 14:45 10/05/18 14:44 Lab Statement: Any lab studies that have been ordered have been reviewed, and results considered in the medical decision making process. - Radiology CXR Radiology Interpretation Completed By: Radiologist Summary of Radiographic Findings: No pneumothorax is noted. Lungs are clear. Old rib injury of the left sixth rib. ED physician has reviewed this report. - EKG 14:55 Cardiac Rate: NL - 91 BPM EKG Rhythm: Sinus Rhythm EKG Comparison: No Significant Change - Similar to 05/05/18 EKG reading. Summary of EKG Findings: No ST elevations. Re-Evaluation - Re-Evaluation First Eval Re-Evaluation Time: 18:50 Change: Improved Comment: I spoke with the patient concerning results and discharge home. Disposition - Course Course Of Treatment: The patient was found to have increased BP in the ED. The patient will follow up with PCP for better control of BP. Assessment/Plan: The patient is a 53 y/o F presenting to [facility] with a chief complaint of fast heart palpitations for a few weeks with newer onset of pressure from the left shoulder down left arm for a few days which is worse at night. She has had episodes of this before, and her PCP adjusted her medications at that time. She additionally c/o SOB, but she states it may be secondary to increased smoking of cigarettes and marijuana as a result of recent stress. She denies dizziness, nausea, and chest pain/pressure. She has hx of anxiety and HTN but denies diabetes, HLD, UT, and thyroid disorder. Surgical hx of hemorrhoid surgery. She reports everyday drinker of wine. Blood work without any significant abnormality except for WBCs of 12.9, potassium level of 3.3 chloride 98 glucose of 116. D-dimer he is less than 200. Troponin is 0.01. TSH is 0.55. Therefore this patient for acute coronary syndrome, pulmonary embolus or thyroid issues. Therefore the patient will be given potassium for the hypokalemia, magnesium for the hypomagnesemia which is 1.8. That the patient would benefit from a Holter monitor provided by the primary care physician. - Diagnoses Provider Diagnoses: Palpitations, Hypokalemia, Hypomagnesemia Discharge - Sign-Out/Discharge Documenting (check all that apply): Patient Departure - Patient will be discharged home. - Discharge Plan Condition: Stable Disposition: HOME Patient Education Materials: Heart Palpitations (ED) Referrals: Meghna Sidhu NP [Primary Care Provider] - 1 Week Additional Instructions: FOLLOW UP WITH YOUR PRIMARY CARE PROVIDER WITHIN 2-3 DAYS FOR HIGH BLOOD PRESSURE NOTED TODAY. RETURN TO THE ED FOR ANY WORSENING OR NEW SYMPTOMS. - Billing Disposition and Condition Condition: STABLE Disposition: Home - Attestation Statements Document Initiated by Ministerio: Yes Documenting Scribe: Nitza Marrero Provider For Whom Ministerio is Documenting (Include Credential): Dr. Gonzalo Duarte MD Scribe Attestation: Nitza Thompson scribed for Dr. Gonzalo Duarte MD on 10/05/18 at 1849. Scribe Documentation Reviewed: Yes Provider Attestation: The documentation as recorded by the Nitza gibbons accurately reflects the service I personally performed and the decisions made by me, Dr. Gonzalo Duarte MD Status of Scribmyesha Document: Viewed
[2018-10-05 15:46] LABS: ABS Basophils 0.1 10^3/ul (0-0.2); ABS Eosinophils 0.1 10^3/ul (0-0.6); ABS Monocytes 0.7 10^3/ul (0-0.8); ABS Nucleated RBC 0 10^3/ul; Eosinophil % 0.6 %; Hematocrit 45 % (35-47); Hemoglobin 15.4 g/dl (12.0-16.0); Lymphocyte % 15.8 %; Mean Corpuscular HGB Conc 35 g/dl (31-36); Mean Corpuscular Hemoglobin 31 pg (27-31); Mean Corpuscular Volume 91 fL (80-97); Mean Platelet Volume 6.9 fL (7.4-10.4); Nucleated Red Blood Cells % 0; Platelet Count 336 10^3/ul (150-450); Red Blood Count 4.93 10^6/ul (4.00-5.40); Red Cell Distribution Width 15 % (10.5-15); White Blood Count 12.9 10^3/ul (3.5-10.8)
[2018-10-05 16:04] LABS: Albumin 4.5 g/dL (3.2-5.2); Albumin/Globulin Ratio 1.4 (1-3); BUN/Creatinine Ratio 12.3 (8-20); Calcium 9.5 mg/dL (8.6-10.3); EGFR Non-African American 111.4 (>60); Globulin 3.2 g/dL (2-4); Magnesium 1.8 mg/dL (1.9-2.7); Potassium 3.3 mmol/L (3.5-5.0); Total Bilirubin 0.5 mg/dL (0.2-1.0); Total Protein 7.7 g/dL (6.4-8.9)
[2018-10-05 16:36] LABS: TSH (Thyroid Stimulating Horm) 0.55 mcIU/mL (0.34-5.60)
[2018-10-05] MEDS ORDERED: Magnesium Oxide TAB* 400 MG PO ONE (17:09)
[2018-10-05] MEDS ORDERED: Potassium Chlor TAB* 20 MEQ TAB.ER PO ONE (17:09)
[2018-10-05 19:09] LABS: Urine Appearance Clear; Urine Bilirubin Negative (Negative); Urine Blood Negative (Negative); Urine Color Yellow; Urine Glucose Negative (Negative); Urine Ketones Negative (Negative); Urine Nitrite Negative (Negative); Urine Protein Negative (Negative); Urine Specific Gravity 1.008 (1.010-1.030); Urine Urobilinogen Negative (Negative)
[2018-10-05 19:19] VITALS: BP 151/89
== END 2018-10-05 19:18 | disposition home or self-care (01) ==
LOC: ED 14:28
DX: R00.2 Palpitations (principal); E87.6 Hypokalemia; E83.42 Hypomagnesemia; F17.210 Nicotine dependence, cigarettes, uncomplicated; I10 Essential (primary) hypertension; F41.9 Anxiety disorder, unspecified
CPT/HCPCS: 36415; 71046; 80053; 81003; 82550; 82553; 83605; 83735; 83880; 84443; 84484; 85025; 85379; 93005; 99283; A9270-GY

== ENCOUNTER 2018-11-30 11:10 | Emergency (ER) | payer BC ==
--- NOTE | 2018-11-30 11:33 | ED ---
GI/ HPI - HPI Summary HPI Summary: Patient is a 53 y/o female who presents to the ED c/o flank pain. She states her sx began 2-3 days ago and have not resolved since. Patient c/o right flank pain that radiates to her right ribs occasionally. She rates her current pain as a 6/10 in severity, and states the pain alternates between a burning and cold sensation. Patient also c/o increased urinary frequency, mild burning with urination, and hot flashes. She denies any fever, hematuria, N/V/D, constipation , or CP. She has been under stress recently due to family issues. LNMP was 2 weeks ago and was normal. PMHx HTN and kidney stones, and states the flank pain feels similar to her prior stones. She denies the use of blood thinners. - History of Current Complaint Chief Complaint: EDFlankPain Time Seen by Provider: 11/30/18 11:31 Stated Complaint: LOWER BACK PAIN Hx Obtained From: Patient Hx Last Menstrual Period: now Onset/Duration: Started Days Ago - 2-3, Still Present Timing: Constant Current Severity: Moderate Pain Intensity: 6 Location of Pain: Flank - right Pain Characteristics: Burning, Other: - cold Associated Signs and Symptoms: Positive: Flank Pain. Negative: Nausea, Vomiting , Diarrhea, Fever, Chest Pain Additional Signs & Symptoms: Positive: Menses Regular Aggravating Factor(s): Nothing Alleviating Factor(s): Nothing - Allergy/Home Medications Allergies/Adverse Reactions: Allergies Allergy/AdvReac Type Severity Reaction Status Date / Time codeine Allergy See Comment Verified 11/30/18 11:15 Home Medications: Home Medications Escitalopram * [Lexapro 10 mg (NF)] 10 mg PO DAILY 11/30/18 [History Confirmed 11/30/18] Irbesartan 300 mg PO DAILY 11/30/18 [History Confirmed 11/30/18] PMH/Surg Hx/FS Hx/Imm Hx Endocrine/Hematology History: Denies: Hx Diabetes, Hx Thyroid Disease Cardiovascular History: Reports: Hx Hypertension - on meds Denies: Hx Hypercholesterolemia, Hx Pacemaker/ICD, Hx Peripheral Vascular Disease Comment Only: Other Cardiovascular Problems/Disorders - tachycardia Respiratory History: Denies: Hx Asthma, Hx Chronic Obstructive Pulmonary Disease (COPD) GI History: Denies: Hx Ulcer, Other GI Disorders History: Reports: Hx Kidney Stones Musculoskeletal History: Denies: Hx Arthritis, Hx Osteoporosis Sensory History: Denies: Hx Cataracts, Hx Contacts or Glasses, Hx Glaucoma, Hx Hearing Aid Opthamlomology History: Denies: Hx Cataracts, Hx Contacts or Glasses, Hx Glaucoma Neurological History: Denies: Hx Headaches, Hx Seizures, Hx Transient Ischemic Attacks (TIA), Other Neuro Impairments/Disorders Psychiatric History: Reports: Hx Anxiety - on meds prn, Hx Depression Denies: Hx Panic Disorder - Cancer History Hx Chemotherapy: No Hx Radiation Therapy: No - Surgical History Surgery Procedure, Year, and Place: Hemorrhoid surgery Hx Anesthesia Reactions: No Infectious Disease History: No Infectious Disease History: Denies: Hx Clostridium Difficile, Hx Hepatitis, Hx Human Immunodeficiency Virus (HIV), Hx of Known/Suspected MRSA, Hx Shingles, Hx Tuberculosis, Hx Known/ Suspected VRE, Hx Known/Suspected VRSA, History Other Infectious Disease, Traveled Outside the [place] in Last 30 Days - Family History Known Family History: Positive: Hypertension, Other - ovarian CA Negative: Cardiac Disease - Social History Alcohol Use: Daily Alcohol Amount: 8 beers/day Hx Substance Use: Yes Substance Use Type: Reports: Marijuana Substance Use Comment - Amount & Last Used: nightly for sleep Hx Tobacco Use: Yes Smoking Status (MU): Heavy Every Day Tobacco Smoker Amount Used/How Often: 1-1.5 PPD for 30 yrs Review of Systems Positive: Other - hot flashes. Negative: Fever Negative: Chest Pain Positive: Abdominal Pain - right rib pain. Negative: Vomiting, Diarrhea, Nausea , Other - constipation Positive: burning, frequency, flank pain - right. Negative: hematuria All Other Systems Reviewed And Are Negative: Yes Physical Exam - Summary Physical Exam Summary: Appearance: Well appearing, no pain distress Skin: warm, dry, reflects adequate perfusion Head/face: normal Eyes: EOMI, YEFRI ENT: mucous membranes moist Neck: supple, non-tender Respiratory: breath sounds present, mild expiratory wheezes, no respiratory distress Cardiovascular: RRR, pulses symmetrical Abdomen: non-tender, soft, no CVA tenderness Bowel Sounds: present Musculoskeletal: normal, strength/ROM intact Neuro: normal, sensory motor intact, A&Ox3 Triage Information Reviewed: Yes Vital Signs On Initial Exam: Initial Vitals Temp Pulse Resp BP Pulse Ox 98 F 89 16 174/78 97 11/30/18 11:11 11/30/18 11:11 11/30/18 11:11 11/30/18 11:11 11/30/18 11:11 Vital Signs Reviewed: Yes Diagnostics - Vital Signs Vital Signs Temp Pulse Resp BP Pulse Ox 11/30/18 11:11 98 F 89 16 174/78 97 - Laboratory Result Diagrams: 11/30/18 11:34 11/30/18 11:34 Lab Statement: Any lab studies that have been ordered have been reviewed, and results considered in the medical decision making process. - CT CT A/P CT Interpretation Completed By: Radiologist Summary of CT Findings: No obstructive uropathy is noted. Nephrolithiasis in the right kidney. Normal appendix. No other masses or fluid collections are noted. ED physician reviewed radiology report. Re-Evaluation - Re-Evaluation First Eval Re-Evaluation Time: 13:41 Change: Improved Comment: Pt feels much better. GIGU Course/Dx - Course Course Of Treatment: Nurse's notes reviewed. Well appearing patient with fleeting right flank pain. No evidence for kidney stone on CT scan. Urine is negative. There is some incidental stool seen in the area of her discomfort. No tenderness in her back with range of motion. Patient is very comfortable here after Toradol. Discharged to follow up with her primary care physician. - Diagnoses Differential Diagnoses - Female: Other - Appendicitis, renal colic, biliary colic, constipation, diverticulitis, ovarian cyst Provider Diagnoses: Acute abdominal pain, Constipation Discharge - Sign-Out/Discharge Documenting (check all that apply): Patient Departure - Discharge Patient Received Moderate/Deep Sedation with Procedure: No - Discharge Plan Condition: Improved Disposition: HOME Prescriptions: Docusate Sodium [Colace] 100 mg PO BID #10 cap Polyethylene Glycol 3350* [Miralax*] 17 gm PO DAILY #5 packet Patient Education Materials: Acute Abdominal Pain (ED) Forms: *Work Release Referrals: Meghna Sidhu NP [Primary Care Provider] - Additional Instructions: Tylenol, ibuprofen as needed for abdominal cramping. Deep well-hydrated. Call your doctor today to schedule prompt follow-up. Return if worse, fever, uncontrolled nausea, new symptoms or other concerns. - Billing Disposition and Condition Condition: IMPROVED Disposition: Home - Attestation Statements Document Initiated by Scribe: Yes Documenting Scribe: Nay Pérez Provider For Whom Scribe is Documenting (Include Credential): Davonte Rivera MD Scribe Attestation: I, Nay Pérez, scribed for Davonte Rivera MD on 11/30/18 at 1352. Scribe Documentation Reviewed: Yes Provider Attestation: The documentation as recorded by the scribe, Nay Pérez accurately reflects the service I personally performed and the decisions made by me, Davonte Rivera MD Status of Scribe Document: Viewed
[2018-11-30] MEDS ORDERED: Ketorolac INJ* 30 MG/ML 1 ML VIAL IV PUSH ONE (11:37)
[2018-11-30 11:49] LABS: ABS Basophils 0.1 10^3/ul (0-0.2); ABS Eosinophils 0.1 10^3/ul (0-0.6); ABS Lymphocytes 1.9 10^3/ul (1.0-4.8); ABS Monocytes 0.6 10^3/ul (0-0.8); ABS Neutrophils 6.1 10^3/ul (1.5-7.7); ABS Nucleated RBC 0 10^3/ul; Eosinophil % 1.2 %; Hematocrit 44 % (35-47); Hemoglobin 14.9 g/dl (12.0-16.0); Lymphocyte % 21.9 %; Mean Corpuscular HGB Conc 34 g/dl (31-36); Mean Corpuscular Hemoglobin 30 pg (27-31); Mean Corpuscular Volume 91 fL (80-97); Nucleated Red Blood Cells % 0.1; Platelet Count 346 10^3/ul (150-450); Red Blood Count 4.88 10^6/ul (4.00-5.40); Red Cell Distribution Width 16 % (10.5-15); White Blood Count 8.8 10^3/ul (3.5-10.8)
[2018-11-30 11:53] LABS: Urine Appearance Clear; Urine Bilirubin Negative (Negative); Urine Blood Negative (Negative); Urine Color Yellow; Urine Glucose Negative (Negative); Urine Ketones Negative (Negative); Urine Nitrite Negative (Negative); Urine Protein Negative (Negative); Urine Specific Gravity 1.017 (1.010-1.030); Urine Urobilinogen Negative (Negative)
[2018-11-30 12:07] LABS: Albumin 4.7 g/dL (3.2-5.2); Albumin/Globulin Ratio 1.5 (1-3); BUN/Creatinine Ratio 16.9 (8-20); C Reactive Protein 2.28 mg/L (<8.01); Calcium 9.5 mg/dL (8.6-10.3); EGFR African American 129.5 (>60); Globulin 3.1 g/dL (2-4); Total Bilirubin 0.4 mg/dL (0.2-1.0); Total Protein 7.8 g/dL (6.4-8.9)
[2018-11-30 12:13] LABS: HCG Pregnancy 1.14 mIU/mL
[2018-11-30 14:20] VITALS: BP 162/98
== END 2018-11-30 14:19 | disposition home or self-care (01) ==
LOC: ED 11:10
DX: R10.31 Right lower quadrant pain (principal); K59.00 Constipation, unspecified; N20.0 Calculus of kidney; Z87.442 Personal history of urinary calculi; R07.81 Pleurodynia; R35.0 Frequency of micturition; R30.0 Dysuria; I10 Essential (primary) hypertension; F41.9 Anxiety disorder, unspecified; F32.9 Major depressive disorder, single episode, unspecified; Z88.5 Allergy status to narcotic agent; F17.200 Nicotine dependence, unspecified, uncomplicated
CPT/HCPCS: 36415; 74176; 80053; 81003; 83605; 83690; 84702; 85025; 86140; 96374; 99283; J1885

== ENCOUNTER 2019-05-04 16:31 | Emergency (ER) | payer BC, OTHER ==
[2019-05-04 17:46] VITALS: BP 154/89
[2019-05-04 19:09] LABS: ABS Basophils 0.1 10^3/ul (0-0.2); ABS Eosinophils 0.1 10^3/ul (0-0.6); ABS Lymphocytes 2.1 10^3/ul (1.0-4.8); ABS Monocytes 0.6 10^3/ul (0-0.8); ABS Neutrophils 7.9 10^3/ul (1.5-7.7); Eosinophil % 0.7 %; Hematocrit 43 % (35-47); Hemoglobin 15.2 g/dL (12.0-16.0); Lymphocyte % 19.4 %; Mean Corpuscular HGB Conc 35 g/dL (31-36); Mean Corpuscular Hemoglobin 34 pg (27-31); Mean Corpuscular Volume 95 fL (80-97); Mean Platelet Volume 6.8 fL (7.4-10.4); Platelet Count 326 10^3/uL (150-450); Red Blood Count 4.51 10^6 /uL (3.70-4.87); Red Cell Distribution Width 15 % (10-15); White Blood Count 10.8 10^3/uL (3.5-10.8)
[2019-05-04 19:23] LABS: Activated Partial Thrombo Time 32.7 seconds (26.0-38.0); INR 0.88 (0.82-1.09)
[2019-05-04 19:26] LABS: Albumin 4.6 g/dL (3.2-5.2); Albumin/Globulin Ratio 1.5 (1-3); Calcium 9.6 mg/dL (8.6-10.3); EGFR African American 140.4 (>60); EGFR Non-African American 116.1 (>60); Potassium 3.9 mmol/L (3.5-5.0); Total Bilirubin 0.4 mg/dL (0.2-1.0); Total Protein 7.6 g/dL (6.4-8.9)
[2019-05-04] MEDS ORDERED: Fluconazole 100 MG TAB* TAB PO ONE (19:41)
--- NOTE | 2019-05-04 19:43 | ED ---
Lower Extremity - HPI Summary HPI Summary: 53 year old female presents with bruise to right leg that noticed a couple days ago. She has history of varicose veins on legs. She denies any injury. She has pain over the area. Does have family history of blood clots. She is a smoker. Denies any increased swelling. Is not on any blood thinners. Also has thrush is currently treated with bucal pill. States she was on a course of a nystain earlier with no improvement and has been on this buccal pill for a week with no improvement. She states her mouth feels very dry. She denies any chest pain or shortness of breath. No other symptoms. - History of Current Complaint Chief Complaint: EDGeneral Stated Complaint: BRUISE ON LEG PER PT Time Seen by Provider: 05/04/19 17:56 Hx Last Menstrual Period: now Pain Intensity: 8 - Allergies/Home Medications Allergies/Adverse Reactions: Allergies Allergy/AdvReac Type Severity Reaction Status Date / Time codeine Allergy See Comment Verified 05/04/19 16:36 PMH/Surg Hx/FS Hx/Imm Hx Endocrine/Hematology History: Denies: Hx Diabetes, Hx Thyroid Disease Cardiovascular History: Reports: Hx Hypertension - on meds Denies: Hx Hypercholesterolemia, Hx Pacemaker/ICD, Hx Peripheral Vascular Disease Comment Only: Other Cardiovascular Problems/Disorders - tachycardia Respiratory History: Denies: Hx Asthma, Hx Chronic Obstructive Pulmonary Disease (COPD) GI History: Denies: Hx Ulcer, Other GI Disorders History: Reports: Hx Kidney Stones Musculoskeletal History: Denies: Hx Arthritis, Hx Osteoporosis Sensory History: Denies: Hx Cataracts, Hx Contacts or Glasses, Hx Glaucoma, Hx Hearing Aid Opthamlomology History: Denies: Hx Cataracts, Hx Contacts or Glasses, Hx Glaucoma Neurological History: Denies: Hx Headaches, Hx Seizures, Hx Transient Ischemic Attacks (TIA), Other Neuro Impairments/Disorders Psychiatric History: Reports: Hx Anxiety - on meds prn, Hx Depression Denies: Hx Panic Disorder - Cancer History Hx Chemotherapy: No Hx Radiation Therapy: No - Surgical History Surgery Procedure, Year, and Place: Hemorrhoid surgery Hx Anesthesia Reactions: No Infectious Disease History: No Infectious Disease History: Denies: Hx Clostridium Difficile, Hx Hepatitis, Hx Human Immunodeficiency Virus (HIV), Hx of Known/Suspected MRSA, Hx Shingles, Hx Tuberculosis, Hx Known/ Suspected VRE, Hx Known/Suspected VRSA, History Other Infectious Disease, Traveled Outside the [place] in Last 30 Days - Family History Known Family History: Positive: None, Hypertension, Other - ovarian CA Negative: Cardiac Disease Family History: denies cardiovascular issues in family lineage - Social History Alcohol Use: Daily Alcohol Amount: 8 beers/day Hx Substance Use: Yes Substance Use Type: Reports: Marijuana Substance Use Comment - Amount & Last Used: nightly for sleep Hx Tobacco Use: Yes Smoking Status (MU): Heavy Every Day Tobacco Smoker Amount Used/How Often: 1-1.5 PPD for 30 yrs Review of Systems Negative: Fever Positive: Other - oral lesion Negative: Chest Pain Negative: Shortness Of Breath Positive: Bruising All Other Systems Reviewed And Are Negative: Yes Physical Exam Triage Information Reviewed: Yes Vital Signs On Initial Exam: Initial Vitals Temp Pulse Resp BP Pulse Ox 98 F 106 16 190/107 96 05/04/19 16:33 05/04/19 16:33 05/04/19 16:33 05/04/19 16:33 05/04/19 16:33 Vital Signs Reviewed: Yes Appearance: Positive: Well-Appearing Skin: Positive: Warm, Dry, Other - ecchymosis noted to right thigh Eyes: Positive: Normal, EOMI, YEFRI, Conjunctiva Clear ENT: Positive: Normal ENT inspection, Pharynx normal, TMs normal Respiratory/Lung Sounds: Positive: Clear to Auscultation, Breath Sounds Present Cardiovascular: Positive: Normal, RRR Musculoskeletal: Positive: Strength/ROM Intact - right leg, Other - good pulses Neurological: Positive: Normal Psychiatric: Positive: Normal Diagnostics - Vital Signs Vital Signs Temp Pulse Resp BP Pulse Ox 05/04/19 17:45 154/89 05/04/19 16:38 179/103 05/04/19 16:33 98 F 106 16 190/107 96 - Laboratory Lab Results: Lab Results 05/04/19 05/04/19 05/04/19 Range/Units 19:00 19:00 19:00 WBC 10.8 (3.5-10.8) 10^3/uL RBC 4.51 (3.70-4.87) 10^6 /uL Hgb 15.2 (12.0-16.0) g/dL Hct 43 (35-47) % MCV 95 (80-97) fL MCH 34 H (27-31) pg MCHC 35 (31-36) g/dL RDW 15 (10-15) % Plt Count 326 (150-450) 10^3/uL MPV 6.8 L (7.4-10.4) fL Neut % (Auto) 73.2 % Lymph % (Auto) 19.4 % [place] % (Auto) 5.7 % Eos % (Auto) 0.7 % Baso % (Auto) 1.0 % Absolute Neuts (auto) 7.9 H (1.5-7.7) 10^3/ul Absolute Lymphs (auto) 2.1 (1.0-4.8) 10^3/ul Absolute Monos (auto) 0.6 (0-0.8) 10^3/ul Absolute Eos (auto) 0.1 (0-0.6) 10^3/ul Absolute Basos (auto) 0.1 (0-0.2) 10^3/ul Absolute Nucleated RBC 0.0 10^3/ul Nucleated RBC % 0.0 INR (Anticoag Therapy) 0.88 (0.82-1.09) APTT 32.7 (26.0-38.0) seconds Sodium 136 (135-145) mmol/L Potassium 3.9 (3.5-5.0) mmol/L Chloride 103 (101-111) mmol/L Carbon Dioxide 24 (22-32) mmol/L Anion Gap 9 (2-11) mmol/L BUN 11 (6-24) mg/dL Creatinine 0.55 (0.51-0.95) mg/dL Est GFR ( Amer) 140.4 (>60) Est GFR (Non-Af Amer) 116.1 (>60) BUN/Creatinine Ratio 20.0 (8-20) Glucose 94 (70-100) mg/dL Calcium 9.6 (8.6-10.3) mg/dL Total Bilirubin 0.40 (0.2-1.0) mg/dL AST 16 (13-39) U/L ALT 16 (7-52) U/L Alkaline Phosphatase 59 (34-104) U/L Total Protein 7.6 (6.4-8.9) g/dL Albumin 4.6 (3.2-5.2) g/dL Globulin 3.0 (2-4) g/dL Albumin/Globulin Ratio 1.5 (1-3) Result Diagrams: 05/04/19 19:00 05/04/19 19:00 Lab Statement: Any lab studies that have been ordered have been reviewed, and results considered in the medical decision making process. - Ultrasound No standard instances Ultrasound Interpretation Completed By: Radiologist Summary of Ultrasound Findings: IMPRESSION: No evidence of DVT in the right leg. Varicose veins noted. Lower Extremity Course/Dx - Course Course Of Treatment: 53 year old female presents with bruise to right leg that noticed a couple days ago. She has history of varicose veins on legs. She denies any injury. She has pain over the area. Does have family history of blood clots. She is a smoker. Denies any increased swelling. Is not on any blood thinners. Also has thrush is currently treated with bucal pill. States she was on a course of a nystain earlier with no improvement and has been on this buccal pill for a week with no improvement. She states her mouth feels very dry. She denies any chest pain or shortness of breath. No other symptoms. On exam thrush seen in the mouth. Discussed was switched to fluconzaole to treat the thrush. Also has ecchymosis noted to right thigh. Ultrasound shows no DVT. lab work without significant abnormality. Discuss apply ice and take Tylenol ibuprofen for the pain in thigh. Patient understands and agrees with plan. - Diagnoses Differential Diagnosis/HQI/PQRI: Positive: DVT, Sprain, Other - ecchymosis, Provider Diagnoses: Ecchymosis, Thrush Discharge - Sign-Out/Discharge Documenting (check all that apply): Patient Departure Patient Received Moderate/Deep Sedation with Procedure: No - Discharge Plan Condition: Good Disposition: HOME Prescriptions: Fluconazole 100 MG TAB* [Diflucan 100 MG TAB*] 100 mg PO DAILY #7 tab Patient Education Materials: Oral Candidiasis (ED), Ecchymosis (ED) Forms: *Work Release Referrals: Meghna Sidhu NP [Primary Care Provider] - Additional Instructions: stop other medication start fluconazole daily for 7 days apply ice to leg elevate Take tyenlol every 6 hours as needed for pain Return to ED if develop any new or worsening symptoms - Billing Disposition and Condition Condition: GOOD Disposition: Home
== END 2019-05-04 20:08 | disposition home or self-care (01) ==
LOC: ED 16:31
DX: R23.3 Spontaneous ecchymoses (principal); B37.9 Candidiasis, unspecified; M79.651 Pain in right thigh; I83.91 Asymptomatic varicose veins of right lower extremity; I10 Essential (primary) hypertension; F41.9 Anxiety disorder, unspecified; Z88.5 Allergy status to narcotic agent; F17.200 Nicotine dependence, unspecified, uncomplicated
CPT/HCPCS: 36415; 80053; 85025; 85610; 85730; 99282; A9270-GY